=== PATIENT | female | born 1950 | race Caucasian/White ===

== ENCOUNTER 2019-01-14 06:05 | Day surgery (SDC) | payer OTHER ==
[~2019-01-14 06:05] MED LIST: MULTIPLE VITAM1 EACH PO
== END 2019-01-14 13:30 | disposition home or self-care (01) ==
LOC: CIR.AMB 06:05
DX: N95.0 Postmenopausal bleeding (principal)

== ENCOUNTER 2022-03-04 08:03 | Outpatient (CLI) | payer OTHER | END 2022-03-04 08:04 | disposition home or self-care (01) | LOC: NUCLEAR 08:03 | PROVIDERS: ATTEND Obstetrics & Gynecology Gynecologic Oncology | DX: C54.1 Malignant neoplasm of endometrium (principal) | CPT/HCPCS: 78815; A9552 ==

== ENCOUNTER 2022-03-08 08:41 | Outpatient (CLI) | payer OTHER | END 2022-03-08 08:57 | disposition home or self-care (01) | LOC: MRI 08:41 | PROVIDERS: ATTEND Obstetrics & Gynecology Gynecologic Oncology | DX: C54.1 Malignant neoplasm of endometrium (principal) | CPT/HCPCS: 72197 ==

== ENCOUNTER 2022-03-26 05:55 | Day surgery (SDC) | payer OTHER | END 2022-03-26 13:15 | disposition home or self-care (01) | LOC: CIR.AMB 05:55 | PROVIDERS: ATTEND Specialist | DX: C54.1 Malignant neoplasm of endometrium (principal); Z20.822 Contact with and (suspected) exposure to COVID-19; Z91.013 Allergy to seafood; Z87.891 Personal history of nicotine dependence ==

== ENCOUNTER 2022-07-11 13:05 | Outpatient (CLI) | payer OTHER | END 2022-07-11 13:21 | disposition home or self-care (01) | LOC: MRI 13:05 | PROVIDERS: ATTEND Internal Medicine Hematology & Oncology | DX: C55 Malignant neoplasm of uterus, part unspecified (principal) | CPT/HCPCS: 72195 ==

== ENCOUNTER 2023-01-06 16:46 | Inpatient (IN) | payer OTHER ==
[~2023-01-06] VITALS: Ht 157.5 cm; Wt 60.3 kg
--- NOTE | 2023-01-06 17:14 | NUR ---
PACIENTE ALERTA Y ORIENTADA X3, REFIERE QUE EL JUEVES RECIBIO RADIOTERAPIA Y DESDE AHI PRESENTA DOLOR ABDOMINAL, DIARREAS Y VOMITOS. REFIERE QUE HOY A TENIDO DIARREAS X2 Y VOMITOS X1. SE MONITOREAN VS Y SE UBICA. PTE DEL DR. BRENNA RUSH
--- NOTE | 2023-01-06 17:33 | NUR ---
SE ORIENTA PTE SOBRE TX MEDICO EL CUAL REFIERE ENTENDER.SE LE EXTRAEN MUESTRAS BAJO MEDIDAS ASEPTICAS,SE CANALIZA Y SE ADMINISTRAN MEDICAMENTOS CLEMENTE ORDEN MEDICA.
[2023-01-08] MEDS ORDERED: PEPCID AC20 MG PO (13:09)
[2023-01-08] MEDS ORDERED: GABAPENTIN100 MG PO (13:09)
[2023-01-08] MEDS ORDERED: AZULFIDINE 500 MG PO (13:09)
== END 2023-01-08 13:35 | disposition home or self-care (01) | DRG 641 ==
LOC: ER 16:46 → SEC-K 20:57 → MEDI 20:57
PROVIDERS: ADMIT Internal Medicine Hematology & Oncology; ATTEND Internal Medicine Hematology & Oncology
DX: E86.0 Dehydration (principal); K52.0 Gastroenteritis and colitis due to radiation; C77.2 Secondary and unspecified malignant neoplasm of intra-abdominal lymph nodes; C77.5 Secondary and unspecified malignant neoplasm of intrapelvic lymph nodes; C55 Malignant neoplasm of uterus, part unspecified; D63.0 Anemia in neoplastic disease; D72.818 Other decreased white blood cell count; D69.59 Other secondary thrombocytopenia

== ENCOUNTER 2024-01-01 14:40 | Emergency (ER) | payer OTHER ==
[~2024-01-01] VITALS: Ht 157.5 cm; Wt 61.2 kg
[~2024-01-01 14:40] MED LIST changes: +AZULFIDINE 500 MG PO; +GABAPENTIN100 MG PO; +PEPCID AC20 MG PO
[2024-01-01] MEDS ORDERED: KETOROLAC TROMETHAMINE 60 MG VIAL IM ONE (18:00)
[2024-01-01 18:08] LABS: HEMATOCRIT 35.7 % (36.0-45.00); MEAN CELL VOLUME 86.8 fL (80.00-100.00); MEAN CORPUSCULAR HEMOGLOBIN 29.2 pg (27.00-32.0); MEAN CORPUSCULAR HGB CONC 33.6 g/dl (32.0-36.0); PLATELET COUNT 186 K/uL (150-450); RED BLOOD COUNT 4.12 M/uL (4.00-6.00); RED CELL DISTRIBUTION WIDTH 13.9 % (11.5-14.5)
[2024-01-01 18:25] LABS: D DIMER 1.06 MG/L; PARTIAL THROMBOPLASTIN TIME 27.4 SECONDS (22.0-34.0)
[2024-01-01 18:29] LABS: ALBUMIN 3.7 gm/dL (3.4-5.0); BILIRUBIN TOTAL 0.26 mg/dL (0.3-1.2); CALCIUM 9.3 mg/dL (8.5-10.1); CREATININE SERUM 0.81 mg/dL (0.55-1.02); GFR 69.5; GLOBULINA 4.1 G/DL (2.4-3.5); POTASSIUM 4.22 mEq/L (3.5-5.1); TOTAL PROTEIN 7.8 gm/dL (6.4-8.2)
[2024-01-01 18:51] LABS: INR 0.94; PROTHROMBIN TIME 9.9 SECONDS (9.0-11.5)
== END 2024-01-01 18:03 | disposition home or self-care (01) ==
LOC: ER 14:41
PROVIDERS: General Practice
DX: M79.604 Pain in right leg (principal); Z91.013 Allergy to seafood
CPT/HCPCS: 36415; 96372; 99282; J1885

== ENCOUNTER 2024-01-02 09:21 | Emergency (ER) | payer OTHER ==
[~2024-01-02] VITALS: Ht 157.5 cm; Wt 71.7 kg
== END 2024-01-02 13:10 | disposition home or self-care (01) ==
LOC: ER 09:21
DX: I89.0 Lymphedema, not elsewhere classified (principal); Z91.013 Allergy to seafood; Z85.89 Personal history of malignant neoplasm of other organs and systems

== ENCOUNTER 2024-03-07 14:45 | Inpatient (IN) | payer OTHER ==
[~2024-03-07] VITALS: Ht 157.5 cm; Wt 68.0 kg
[~2024-03-07 14:45] MED LIST changes: +COLACE100 MG PO; +CYMBALTA30 MG PO; +DEXAMETHASONE4 MG PO; +ELIQUIS5 MG PO; +FAMOTIDINE20 MG PO; +FUROSEMIDE20 MG PO; +GABAPENTIN300 MG PO; +LACTULOSE10 GM/152 PO
[2024-03-07] MEDS ORDERED: OXYCODONE HCL20 M1 PO (15:34)
[2024-03-07] MEDS ORDERED: MS CONTIN15 M1 PO (15:35)
[2024-03-07] MEDS ORDERED: RESTORIL15 MG PO (15:35)
[2024-03-07] MEDS ORDERED: FLORANEX TABLE1 EACH PO (15:35)
[2024-03-07] MEDS ORDERED: HORIZANT300 MG PO (15:37)
--- NOTE | 2024-03-07 15:37 | NUR ---
PTE ALERTA Y ORIENTADA X3 QUIEN REFIERE VENIR POR EDEMA EN [place]. PTE CON CANCER DE NODULOS LINFATICOS. PTE DE DR. SHEREE RUSH
[2024-03-07] MEDS ORDERED: FUROsemide 40 MG/4 ML VIAL IV SCH (17:57)
[2024-03-07] MEDS ORDERED: MORPHINE SULFATE 2 MG/ML CARTRIDGE IV PRN (18:00)
[2024-03-07] MEDS ORDERED: OxyCODONE HCL/APAP UD (PERCOCET) PO SCH (18:00)
[2024-03-07] MEDS ORDERED: FUROsemide 40 MG/4 ML VIAL ONE (18:13)
[2024-03-07 18:45] LABS: HEMATOCRIT 29.7 % (36.0-45.00); HEMOGLOBIN 10.2 g/dL (12.0-15.00); MEAN CELL VOLUME 87.4 fL (80.00-100.00); MEAN CORPUSCULAR HEMOGLOBIN 30.1 pg (27.00-32.0); MEAN CORPUSCULAR HGB CONC 34.4 g/dl (32.0-36.0); RED CELL DISTRIBUTION WIDTH 14.2 % (11.5-14.5)
--- NOTE | 2024-03-07 18:46 | NUR ---
PTE EVALUADA POR DR. Cornell SCOTT QUIEN ORDENA [place] MEDICO. SE ORIENTA A PTE SOBRE EL MISMO, ESTA REFIERE ENTENDER. SE COLECTAN MUESTRAS DE LAB BAJO MEDIDAS ASEPTICAS Y SE ADMINISTRAN MEDICAMENTOS CLEMENTE ORDEN MEDICA. SE ORIENTA A PTE SOBRE BENEFICIOS DE CASTELLANO CATHETER DEBIDO A USO DE DIURETICOS, ESTA REHUSA EL MISMO. SE NOTIFICA A DR. Cornell SCOTT SOBRE EL MISMO.
[2024-03-07 18:52] LABS: PLATELET COUNT 126 K/uL (150-450)
[2024-03-07 18:56] LABS: ERYTHROCYTE SEDIMENTATION RATE 55 mm/hr
[2024-03-07 19:18] LABS: D DIMER 0.75 MG/L; PARTIAL THROMBOPLASTIN TIME 28.3 SECONDS (22.0-34.0)
[2024-03-07 19:22] LABS: INR < 0.93; PROTHROMBIN TIME 9.7 SECONDS (9.0-11.5)
[2024-03-07 19:25] LABS: BILIRUBIN TOTAL 0.34 mg/dL (0.3-1.2); CALCIUM 8.8 mg/dL (8.5-10.1); CREATININE SERUM 0.89 mg/dL (0.55-1.02); GFR 62.35; GLOBULINA 3.2 G/DL (2.4-3.5); POTASSIUM 3.91 mEq/L (3.5-5.1); TOTAL PROTEIN 6.2 gm/dL (6.4-8.2)
[2024-03-07] MEDS ORDERED: ONDANSETRON HCL 4 MG in 0.9 % SODIUM CHLORIDE 50 ML IV PRN (20:15)
[2024-03-07] MEDS ORDERED: ACETAMINOPHEN 500 MG GEL..CAP PO PRN (20:15)
[2024-03-07] MEDS ORDERED: ALBUMIN HUMAN 5% 0.05GM/ML (250ML) VIAL IV SCH (21:00)
[2024-03-07] MEDS ORDERED: TEMAZEPAM 15 MG CAPSULE PO SCH (21:00)
[2024-03-08] MEDS ORDERED: FAMOTIDINE/PF 20 MG in 0.9 % SODIUM CHLORIDE 8 ML IV PUSH SCH (09:00)
[2024-03-08] MEDS ORDERED: GABAPENTIN 300 MG CAPSULE PO SCH ×2 (09:00→17:00)
[2024-03-08] MEDS ORDERED: Duloxetine HCl 30 MG CAPSULE.DR PO SCH (09:00)
[2024-03-08] MEDS ORDERED: ALBUMIN HUMAN-25 0.25GM/ML (50ML) VIAL IV SCH (13:00)
[2024-03-08] MEDS ORDERED: MORPHINE SULFATE 2 MG/ML CARTRIDGE IV PRN (13:52)
[2024-03-08] MEDS ORDERED: VITAMIN B COMPLEX 1 EACH PO SCH (17:00)
[2024-03-08] MEDS ORDERED: FILGRASTIM-AAFI 300 MCG/0.5 ML SYRINGE SUBCUTANEO SCH (17:00)
[2024-03-08] MEDS ORDERED: NIFEDIPINE 30 MG TAB.SA.OSM PO SCH (19:39)
[2024-03-08] MEDS ORDERED: MORPHINE SULFATE 4 MG/ML VIAL IV STA (20:12)
[2024-03-08] MEDS ORDERED: GABAPENTIN 400 MG CAPSULE PO SCH (21:15)
[2024-03-09] MEDS ORDERED: fentaNYL 12 MCG PATCH.TD72 TD SCH ×2 (06:00→07:00)
[2024-03-09 08:41] LABS: ALBUMIN 3.2 gm/dL (3.4-5.0); BILIRUBIN TOTAL 0.38 mg/dL (0.3-1.2); CREATININE SERUM 0.88 mg/dL (0.55-1.02); GFR 63.16; MAGNESIUM 2.3 mg/dL (1.8-2.4); PHOSPHOROUS 3.1 mg/dL (2.5-4.9); POTASSIUM 3.9 mEq/L (3.5-5.1); TOTAL PROTEIN 6.2 gm/dL (6.4-8.2)
[2024-03-09] MEDS ORDERED: GABAPENTIN 400 MG CAPSULE PO SCH (09:00)
[2024-03-09] MEDS ORDERED: PANTOPRAZOLE SODIUM 40 MG TABLET.DR PO SCH (09:00)
[2024-03-09] MEDS ORDERED: FILGRASTIM-AAFI 300 MCG/0.5 ML SYRINGE SUBCUTANEO SCH (09:00)
[2024-03-09] MEDS ORDERED: IRON FUM,PS/FOLIC/BCOMP,C NO.9 1 CAP CAPSULE PO SCH (09:00)
[2024-03-09 09:18] LABS: HEMATOCRIT 27.2 % (36.0-45.00); HEMOGLOBIN 9.3 g/dL (12.0-15.00); MEAN CELL VOLUME 87.1 fL (80.00-100.00); MEAN CORPUSCULAR HEMOGLOBIN 29.7 pg (27.00-32.0); MEAN CORPUSCULAR HGB CONC 34.1 g/dl (32.0-36.0); PLATELET COUNT 146 K/uL (150-450); RED BLOOD COUNT 3.12 M/uL (4.00-6.00); RED CELL DISTRIBUTION WIDTH 14.5 % (11.5-14.5)
[2024-03-09] MEDS ORDERED: MAG HYDROX/ALUMINUM HYD/SIMETH 30 ML BLIST.PACK PO ONE (20:15)
[2024-03-09] MEDS ORDERED: DEXAMETHASONE 6 MG PO SCH (21:00)
[2024-03-09] MEDS ORDERED: ALUMINUM HYD PO SCH (21:00)
[2024-03-09] MEDS ORDERED: SIMETH PO SCH (21:00)
[2024-03-09] MEDS ORDERED: LIDOCAINE HCL MAG HYDROX PO SCH (21:00)
[2024-03-10] MEDS ORDERED: MAG HYDROX/ALUMINUM HYD/SIMETH 30 ML BLIST.PACK PO ONE (08:26)
[2024-03-10 09:16] LABS: HEMATOCRIT 24.5 % (36.0-45.00); MEAN CELL VOLUME 86.4 fL (80.00-100.00); MEAN CORPUSCULAR HEMOGLOBIN 29.9 pg (27.00-32.0); MEAN CORPUSCULAR HGB CONC 34.6 g/dl (32.0-36.0); PLATELET COUNT 166 K/uL (150-450); RED BLOOD COUNT 2.84 M/uL (4.00-6.00); RED CELL DISTRIBUTION WIDTH 14.7 % (11.5-14.5)
[2024-03-10 09:25] LABS: HEMOGLOBIN 8.5 g/dL (12.0-15.00)
[2024-03-10 15:28] LABS: URINE APPEARANCE Clear; URINE BILIRRUBIN Negative (NEGATIVE); URINE BLOOD Moderate; URINE COLOR Yellow; URINE GLUCOSE Negative (NEGATIVE); URINE LEUKOCYTE Small; URINE NITRATE Negative; URINE UROBILINOGEN 0.2 E.U./dl
[2024-03-10 15:29] LABS: URINE BACTERIA 148.6 uL (0.0-1933); URINE EPITHELIAL CELLS 4.4 uL (0.0-38.8); URINE RBC 234.8 uL (0.0-20.8); URINE WBC 31.5 uL (0.0-23.2)
[2024-03-10 15:43] LABS: URINE PROTEIN 100 (NEGATIVE)
[2024-03-11] MEDS ORDERED: DIATRIZOATE MEGLUMINE, SODIUM 30 ML BOTTLE PO ONE (06:00)
[2024-03-11] MEDS ORDERED: DIPHENHYDRAMINE HCL 50 MG/ML VIAL 1ML IV SCH (08:30)
[2024-03-11] MEDS ORDERED: EPOETIN ALFA-EPBX 10,000 UNIT/ML VIAL (Retacrit) SUBCUTANEO SCH (09:00)
[2024-03-11] MEDS ORDERED: METHYLPREDNISOLONE SOD SUCC 40 MG VIAL IV SCH (09:54)
[2024-03-11] MEDS ORDERED: METHYLPREDNISOLONE SOD SUCC 40 MG VIAL ONE (10:23)
[2024-03-11] MEDS ORDERED: MAG HYDROX/ALUMINUM HYD/SIMETH 30 ML BLIST.PACK PO ONE (14:20)
[2024-03-11 14:34] LABS: ob NEGATIVE (NEGATIVE)
[2024-03-12] MEDS ORDERED: fentaNYL 12 MCG PATCH.TD72 TD SCH (07:00)
[2024-03-12 08:25] LABS: HEMATOCRIT 25.1 % (36.0-45.00); MEAN CELL VOLUME 87.1 fL (80.00-100.00); PLATELET COUNT 261 K/uL (150-450); RED BLOOD COUNT 2.88 M/uL (4.00-6.00); RED CELL DISTRIBUTION WIDTH 15.1 % (11.5-14.5)
[2024-03-12] MEDS ORDERED: FUROsemide 40 MG/4 ML VIAL IV SCH (09:00)
[2024-03-12 09:02] LABS: ALBUMIN 2.8 gm/dL (3.4-5.0); BILIRUBIN TOTAL 0.17 mg/dL (0.3-1.2); CALCIUM 8.9 mg/dL (8.5-10.1); CREATININE SERUM 0.88 mg/dL (0.55-1.02); GFR 63.16; GLOBULINA 2.9 G/DL (2.4-3.5); POTASSIUM 4.38 mEq/L (3.5-5.1); TOTAL PROTEIN 5.7 gm/dL (6.4-8.2)
[2024-03-12 09:18] LABS: HEMOGLOBIN 8.5 g/dL (12.0-15.00); MEAN CORPUSCULAR HEMOGLOBIN 29.5 pg (27.00-32.0)
[2024-03-13] MEDS ORDERED: MORPHINE SULFATE 2 MG/ML CARTRIDGE IV PRN (00:45)
[2024-03-13] MEDS ORDERED: GABAPENTIN 400 MG CAPSULE PO SCH (09:00)
[2024-03-13] MEDS ORDERED: Duloxetine HCl 60 MG CAPSULE.DR PO SCH (09:00)
[2024-03-13] MEDS ORDERED: APIXABAN 5 MG TABLET PO SCH (21:00)
[2024-03-14 07:39] LABS: HEMATOCRIT 25.4 % (36.0-45.00); MEAN CELL VOLUME 86.3 fL (80.00-100.00); MEAN CORPUSCULAR HGB CONC 34.5 g/dl (32.0-36.0); PLATELET COUNT 294 K/uL (150-450); RED BLOOD COUNT 2.95 M/uL (4.00-6.00)
[2024-03-14 07:42] LABS: MEAN CORPUSCULAR HEMOGLOBIN 29.8 pg (27.00-32.0)
[2024-03-14 07:43] LABS: HEMOGLOBIN 8.8 g/dL (12.0-15.00)
[2024-03-14] MEDS ORDERED: TEMAZEPAM 15 MG CAPSULE PO ONE (22:45)
[2024-03-15 08:13] LABS: HEMATOCRIT 27.5 % (36.0-45.00); HEMOGLOBIN 9.3 g/dL (12.0-15.00); MEAN CELL VOLUME 86.6 fL (80.00-100.00); MEAN CORPUSCULAR HEMOGLOBIN 29.4 pg (27.00-32.0); MEAN CORPUSCULAR HGB CONC 33.9 g/dl (32.0-36.0); PLATELET COUNT 325 K/uL (150-450); RED BLOOD COUNT 3.18 M/uL (4.00-6.00); RED CELL DISTRIBUTION WIDTH 15.1 % (11.5-14.5)
[2024-03-15 08:28] LABS: ALBUMIN 3.1 gm/dL (3.4-5.0); BILIRUBIN TOTAL 0.25 mg/dL (0.3-1.2); CALCIUM 9.2 mg/dL (8.5-10.1); CREATININE SERUM 0.81 mg/dL (0.55-1.02); GFR 69.5; GLOBULINA 3.2 G/DL (2.4-3.5); MAGNESIUM 2.4 mg/dL (1.8-2.4); POTASSIUM 4.23 mEq/L (3.5-5.1); TOTAL PROTEIN 6.3 gm/dL (6.4-8.2)
[2024-03-15] MEDS ORDERED: MORPHINE SULFATE 2 MG/ML CARTRIDGE IV PRN (18:30)
[2024-03-15] MEDS ORDERED: TEMAZEPAM 15 MG CAPSULE PO SCH (21:00)
[2024-03-15] MEDS ORDERED: FUROsemide 20 MG/2 ML VIAL IV SCH (21:00)
[2024-03-15] MEDS ORDERED: LIDOCAINE 5% 1 PATCH ADH. TOP SCH (21:00)
[2024-03-17 08:16] LABS: HEMATOCRIT 30.4 % (36.0-45.00); HEMOGLOBIN 10.3 g/dL (12.0-15.00); MEAN CELL VOLUME 87.7 fL (80.00-100.00); MEAN CORPUSCULAR HEMOGLOBIN 29.7 pg (27.00-32.0); MEAN CORPUSCULAR HGB CONC 33.9 g/dl (32.0-36.0); PLATELET COUNT 309 K/uL (150-450); RED BLOOD COUNT 3.47 M/uL (4.00-6.00); RED CELL DISTRIBUTION WIDTH 15.4 % (11.5-14.5)
[2024-03-17 08:31] LABS: BILIRUBIN TOTAL 0.33 mg/dL (0.3-1.2); CALCIUM 8.9 mg/dL (8.5-10.1); CREATININE SERUM 0.87 mg/dL (0.55-1.02); GLOBULINA 3.2 G/DL (2.4-3.5); MAGNESIUM 2.4 mg/dL (1.8-2.4); PHOSPHOROUS 2.7 mg/dL (2.5-4.9); POTASSIUM 4.54 mEq/L (3.5-5.1); TOTAL PROTEIN 6.2 gm/dL (6.4-8.2)
[2024-03-17] MEDS ORDERED: FUROsemide 20 MG/2 ML VIAL IV SCH (09:00)
[2024-03-17] MEDS ORDERED: FUROsemide 20 MG TABLET PO SCH (09:00)
[2024-03-17] MEDS ORDERED: MORPHINE SULFATE 2 MG/ML CARTRIDGE IV STA (09:46)
[2024-03-17] MEDS ORDERED: MORPHINE SULFATE 2 MG/ML CARTRIDGE IV PRN (16:50)
[2024-03-17] MEDS ORDERED: 0.9 % SODIUM CHLORIDE 1,000 ML IV SCH (17:30)
[2024-03-17] MEDS ORDERED: MORPHINE SULFATE 4 MG/ML CARTRIDGE IV SCH (18:00)
[2024-03-17] MEDS ORDERED: MORPHINE SULFATE 4 MG/ML CARTRIDGE IV PRN (19:42)
[2024-03-18] MEDS ORDERED: GABAPENTIN 600 MG TABLET PO SCH (01:00)
[2024-03-18 07:30] LABS: HEMATOCRIT 28.4 % (36.0-45.00); HEMOGLOBIN 9.6 g/dL (12.0-15.00); MEAN CELL VOLUME 86.2 fL (80.00-100.00); MEAN CORPUSCULAR HEMOGLOBIN 29.1 pg (27.00-32.0); MEAN CORPUSCULAR HGB CONC 33.8 g/dl (32.0-36.0); PLATELET COUNT 290 K/uL (150-450); RED CELL DISTRIBUTION WIDTH 15.3 % (11.5-14.5)
[2024-03-18 08:00] LABS: ALBUMIN 2.6 gm/dL (3.4-5.0); BILIRUBIN TOTAL 0.6 mg/dL (0.3-1.2); CALCIUM 8.5 mg/dL (8.5-10.1); CREATININE SERUM 0.78 mg/dL (0.55-1.02); GFR 72.6; MAGNESIUM 2.4 mg/dL (1.8-2.4); POTASSIUM 4.69 mEq/L (3.5-5.1); TOTAL PROTEIN 5.6 gm/dL (6.4-8.2)
[2024-03-18] MEDS ORDERED: METHYLPREDNISOLONE SOD SUCC 40 MG VIAL IV SCH (09:30)
[2024-03-18] MEDS ORDERED: DOCUSATE SODIUM 100MG CAP PO SCH (17:00)
[2024-03-19 08:38] LABS: HEMATOCRIT 25.6 % (36.0-45.00); MEAN CELL VOLUME 87.2 fL (80.00-100.00); MEAN CORPUSCULAR HGB CONC 33.7 g/dl (32.0-36.0); PLATELET COUNT 239 K/uL (150-450); RED BLOOD COUNT 2.94 M/uL (4.00-6.00); RED CELL DISTRIBUTION WIDTH 15.5 % (11.5-14.5)
[2024-03-19 08:42] LABS: HEMOGLOBIN 8.6 g/dL (12.0-15.00); MEAN CORPUSCULAR HEMOGLOBIN 29.2 pg (27.00-32.0)
[2024-03-19 09:07] LABS: ALBUMIN 2.5 gm/dL (3.4-5.0); BILIRUBIN TOTAL 0.42 mg/dL (0.3-1.2); CALCIUM 8.3 mg/dL (8.5-10.1); CREATININE SERUM 0.7 mg/dL (0.55-1.02); GFR 82.25; GLOBULINA 3.2 G/DL (2.4-3.5); POTASSIUM 4.39 mEq/L (3.5-5.1); TOTAL PROTEIN 5.7 gm/dL (6.4-8.2)
[2024-03-20] MEDS ORDERED: MORPHINE SULFATE 4 MG/ML VIAL IV PRN (01:30)
[2024-03-20] MEDS ORDERED: MORPHINE SULFATE 2 MG/ML CARTRIDGE IV PRN (10:45)
[2024-03-21] MEDS ORDERED: ONDANSETRON HCL 4 MG in DEXTROSE 5 % IN WATER 50 ML IV SCH (01:00)
[2024-03-21 08:12] LABS: HEMATOCRIT 27.4 % (36.0-45.00); HEMOGLOBIN 9.3 g/dL (12.0-15.00); MEAN CELL VOLUME 85.5 fL (80.00-100.00); MEAN CORPUSCULAR HEMOGLOBIN 28.9 pg (27.00-32.0); MEAN CORPUSCULAR HGB CONC 33.8 g/dl (32.0-36.0); PLATELET COUNT 208 K/uL (150-450); RED CELL DISTRIBUTION WIDTH 15.5 % (11.5-14.5)
[2024-03-21 08:55] LABS: ALBUMIN 2.3 gm/dL (3.4-5.0); BILIRUBIN TOTAL 1.03 mg/dL (0.3-1.2); CALCIUM 8.4 mg/dL (8.5-10.1); CREATININE SERUM 0.83 mg/dL (0.55-1.02); GFR 67.57; GLOBULINA 3.3 G/DL (2.4-3.5); PHOSPHOROUS 2.4 mg/dL (2.5-4.9); POTASSIUM 4.52 mEq/L (3.5-5.1); TOTAL PROTEIN 5.6 gm/dL (6.4-8.2)
[2024-03-21] MEDS ORDERED: NAPH,MB-DB/K PH,MBDB 1 PKT PACKET PO SCH (12:14)
[2024-03-21] MEDS ORDERED: CEFEPIME HCL 2,000 MG in 0.9 % SODIUM CHLORIDE 100 ML IV SCH (12:15)
[2024-03-21] MEDS ORDERED: VANCOMYCIN HCL 1,000 MG VIAL IV STA (12:15)
[2024-03-21] MEDS ORDERED: 0.9 % SODIUM CHLORIDE 1,000 ML IV SCH (12:30)
[2024-03-21 15:10] LABS: URINE APPEARANCE Turbid; URINE BILIRRUBIN Negative (NEGATIVE); URINE BLOOD Large; URINE COLOR Yellow; URINE LEUKOCYTE Large; URINE NITRATE Positive
[2024-03-21 15:13] LABS: URINE EPITHELIAL CELLS 4.7 uL (0.0-38.8); URINE RBC 521.4 uL (0.0-20.8)
[2024-03-21 15:16] LABS: URINE GLUCOSE >=1000 MG/DL (NEGATIVE)
[2024-03-21 15:17] LABS: URINE PROTEIN 100 (NEGATIVE)
[2024-03-21] MEDS ORDERED: DEXTROSE 50 % IN WATER 0.5 G/ML VIAL IV PRN (20:15)
[2024-03-21] MEDS ORDERED: INSULIN LISPRO 1,000 UNIT/10 ML UNITS SUBCUTANEO PRN (20:15)
[2024-03-21] MEDS ORDERED: VANCOMYCIN HCL 1,000 MG VIAL IV SCH (21:00)
[2024-03-22 08:03] LABS: MEAN CELL VOLUME 86.6 fL (80.00-100.00); PLATELET COUNT 190 K/uL (150-450); RED BLOOD COUNT 2.72 M/uL (4.00-6.00); RED CELL DISTRIBUTION WIDTH 15.6 % (11.5-14.5)
[2024-03-22 08:22] LABS: HEMATOCRIT 23.6 % (36.0-45.00); MEAN CORPUSCULAR HEMOGLOBIN 29.4 pg (27.00-32.0)
[2024-03-22 09:01] LABS: BILIRUBIN TOTAL 0.82 mg/dL (0.3-1.2); CREATININE SERUM 0.84 mg/dL (0.55-1.02); GFR 66.65; POTASSIUM 4.19 mEq/L (3.5-5.1)
[2024-03-22] MEDS ORDERED: 0.9 % SODIUM CHLORIDE 1,000 ML IV STA (19:40)
[2024-03-22] MEDS ORDERED: FUROsemide 20 MG/2 ML VIAL IV PRN (20:15)
[2024-03-22] MEDS ORDERED: CEFEPIME HCL 2,000 MG in 0.9 % SODIUM CHLORIDE 100 ML IV SCH (21:00)
[2024-03-23] MEDS ORDERED: ACETAMINOPHEN 500 MG GEL..CAP PO PRN (04:00)
[2024-03-23 07:26] LABS: HEMATOCRIT 23.6 % (36.0-45.00); MEAN CELL VOLUME 85.5 fL (80.00-100.00); MEAN CORPUSCULAR HEMOGLOBIN 29.2 pg (27.00-32.0); MEAN CORPUSCULAR HGB CONC 34.2 g/dl (32.0-36.0); PLATELET COUNT 198 K/uL (150-450); RED BLOOD COUNT 2.77 M/uL (4.00-6.00)
[2024-03-23 07:27] LABS: HEMOGLOBIN 8.1 g/dL (12.0-15.00)
[2024-03-23 08:07] LABS: ALBUMIN 1.8 gm/dL (3.4-5.0); BILIRUBIN TOTAL 0.85 mg/dL (0.3-1.2); CALCIUM 7.6 mg/dL (8.5-10.1); CREATININE SERUM 0.82 mg/dL (0.55-1.02); GFR 68.53; MAGNESIUM 1.9 mg/dL (1.8-2.4); PHOSPHOROUS 2.1 mg/dL (2.5-4.9); POTASSIUM 3.98 mEq/L (3.5-5.1); TOTAL PROTEIN 4.8 gm/dL (6.4-8.2)
[2024-03-23 11:07] LABS: HEMATOCRIT 26.2 % (36.0-45.00); MEAN CELL VOLUME 86.5 fL (80.00-100.00); MEAN CORPUSCULAR HEMOGLOBIN 29.7 pg (27.00-32.0); MEAN CORPUSCULAR HGB CONC 34.3 g/dl (32.0-36.0); PLATELET COUNT 210 K/uL (150-450); RED BLOOD COUNT 3.03 M/uL (4.00-6.00); RED CELL DISTRIBUTION WIDTH 15.7 % (11.5-14.5)
[2024-03-23] MEDS ORDERED: AMINO ACIDS 1 EACH TABLET PO SCH (13:00)
[2024-03-23] MEDS ORDERED: OxyCODONE HCL 5 MG TABLET (ROXICODONE) PO PRN (19:30)
[2024-03-23 22:01] LABS: INR 1.04; PARTIAL THROMBOPLASTIN TIME 27.3 SECONDS (22.0-34.0); PROTHROMBIN TIME 10.9 SECONDS (9.0-11.5)
[2024-03-24] MEDS ORDERED: CEFAZOLIN SODIUM 1,000 MG VIAL IV SCH (01:00)
[2024-03-24] MEDS ORDERED: fentaNYL 12 MCG PATCH.TD72 TD SCH (07:00)
[2024-03-24] MEDS ORDERED: INSULIN NPH HUM/REG INSULIN HM 1,000 UNIT/10 ML UNITS SUBCUTANEO SCH (08:00)
[2024-03-24 09:59] LABS: HEMATOCRIT 29.1 % (36.0-45.00); HEMOGLOBIN 10.1 g/dL (12.0-15.00); MEAN CELL VOLUME 85.3 fL (80.00-100.00); MEAN CORPUSCULAR HEMOGLOBIN 29.6 pg (27.00-32.0); MEAN CORPUSCULAR HGB CONC 34.7 g/dl (32.0-36.0); PLATELET COUNT 252 K/uL (150-450); RED BLOOD COUNT 3.41 M/uL (4.00-6.00); RED CELL DISTRIBUTION WIDTH 15.5 % (11.5-14.5)
[2024-03-24 10:32] LABS: ALBUMIN 2.1 gm/dL (3.4-5.0); BILIRUBIN TOTAL 0.89 mg/dL (0.3-1.2); CREATININE SERUM 0.81 mg/dL (0.55-1.02); GFR 69.5; GLOBULINA 3.5 G/DL (2.4-3.5); PHOSPHOROUS 2.2 mg/dL (2.5-4.9); POTASSIUM 3.79 mEq/L (3.5-5.1); TOTAL PROTEIN 5.6 gm/dL (6.4-8.2)
[2024-03-24] MEDS ORDERED: POTASSIUM PHOS,M-BASIC-D-BASIC 3 MM/ML VIAL IV ONE ×2 (11:45→12:15)
[2024-03-24] MEDS ORDERED: LIDOCAINE HCL 1%/EPINEPHRINE 20ML VIAL IJ ONE (12:15)
[2024-03-24] MEDS ORDERED: LIDOCAINE HCL 1% 20ML VIAL IJ ONE (12:15)
[2024-03-24] MEDS ORDERED: MORPHINE SULFATE 4 MG/ML CARTRIDGE IV STA (19:41)
[2024-03-25] MEDS ORDERED: OxyCODONE HCL 5 MG TABLET (ROXICODONE) PO PRN ×2 (01:15→07:15)
[2024-03-25 02:30] LABS: HEMATOCRIT 31.4 % (36.0-45.00); HEMOGLOBIN 10.7 g/dL (12.0-15.00); MEAN CELL VOLUME 86.5 fL (80.00-100.00); MEAN CORPUSCULAR HEMOGLOBIN 29.4 pg (27.00-32.0); MEAN CORPUSCULAR HGB CONC 33.9 g/dl (32.0-36.0); PLATELET COUNT 274 K/uL (150-450); RED BLOOD COUNT 3.63 M/uL (4.00-6.00); RED CELL DISTRIBUTION WIDTH 15.4 % (11.5-14.5)
[2024-03-25] MEDS ORDERED: KETOROLAC TROMETHAMINE 30 MG VIAL IV NR (19:15)
[2024-03-26] MEDS ORDERED: fentaNYL 25 MCG PATCH.TD72 TD SCH (06:30)
[2024-03-26] MEDS ORDERED: ONDANSETRON HCL 2 MG/ML VIAL IV PRN (07:00)
[2024-03-26] MEDS ORDERED: NALOXONE HCL 0.4 MG/ML AMPUL IV PRN (07:00)
[2024-03-26] MEDS ORDERED: DIPHENHYDRAMINE HCL 50 MG/ML VIAL 1ML IV PRN (07:00)
[2024-03-26] MEDS ORDERED: SILVER SULFADIAZINE 50 GM,ZINC OXIDE 30 GM,NYSTATIN 30 GM TOP SCH (09:00)
[2024-03-26] MEDS ORDERED: OxyCODONE HCL 5 MG TABLET (ROXICODONE) PO PRN (12:50)
[2024-03-27 08:50] LABS: HEMATOCRIT 27.6 % (36.0-45.00); HEMOGLOBIN 9.5 g/dL (12.0-15.00); MEAN CELL VOLUME 85.7 fL (80.00-100.00); MEAN CORPUSCULAR HEMOGLOBIN 29.5 pg (27.00-32.0); MEAN CORPUSCULAR HGB CONC 34.4 g/dl (32.0-36.0); PLATELET COUNT 267 K/uL (150-450); RED BLOOD COUNT 3.22 M/uL (4.00-6.00); RED CELL DISTRIBUTION WIDTH 16.1 % (11.5-14.5)
[2024-03-27 09:50] LABS: ALBUMIN 1.9 gm/dL (3.4-5.0); BILIRUBIN TOTAL 0.34 mg/dL (0.3-1.2); CALCIUM 7.9 mg/dL (8.5-10.1); CREATININE SERUM 0.67 mg/dL (0.55-1.02); GFR 86.52; GLOBULINA 3.4 G/DL (2.4-3.5); MAGNESIUM 1.9 mg/dL (1.8-2.4); PHOSPHOROUS 2.5 mg/dL (2.5-4.9); POTASSIUM 3.89 mEq/L (3.5-5.1); TOTAL PROTEIN 5.3 gm/dL (6.4-8.2)
[2024-03-27] MEDS ORDERED: SENNA/DOCUSATE SODIUM 1 TAB TABLET PO SCH (21:00)
[2024-03-28] MEDS ORDERED: OxyCODONE HCL 5 MG TABLET (ROXICODONE) PO PRN (13:30)
[2024-03-28] MEDS ORDERED: fentaNYL 25 MCG PATCH.TD72 TD SCH (15:45)
[2024-03-28] MEDS ORDERED: GABAPENTIN 800 MG TABLET PO SCH (17:00)
[2024-03-28] MEDS ORDERED: KETOROLAC TROMETHAMINE 30 MG VIAL IV ONE (18:30)
[2024-03-29 07:13] LABS: HEMATOCRIT 28.8 % (36.0-45.00); HEMOGLOBIN 9.9 g/dL (12.0-15.00); MEAN CELL VOLUME 85.9 fL (80.00-100.00); MEAN CORPUSCULAR HEMOGLOBIN 29.4 pg (27.00-32.0); MEAN CORPUSCULAR HGB CONC 34.3 g/dl (32.0-36.0); PLATELET COUNT 294 K/uL (150-450); RED BLOOD COUNT 3.35 M/uL (4.00-6.00); RED CELL DISTRIBUTION WIDTH 15.7 % (11.5-14.5)
[2024-03-29 07:33] LABS: BILIRUBIN TOTAL 0.29 mg/dL (0.3-1.2); CALCIUM 8.3 mg/dL (8.5-10.1); CREATININE SERUM 0.58 mg/dL (0.55-1.02); GFR 102.19; GLOBULINA 3.6 G/DL (2.4-3.5); MAGNESIUM 1.9 mg/dL (1.8-2.4); POTASSIUM 3.95 mEq/L (3.5-5.1); TOTAL PROTEIN 5.6 gm/dL (6.4-8.2)
[2024-03-30] MEDS ORDERED: LOSARTAN POTASSIUM 25 MG TABLET PO SCH (09:00)
[2024-03-30] MEDS ORDERED: KETOROLAC TROMETHAMINE 30 MG VIAL IV SCH (22:40)
[2024-03-31] MEDS ORDERED: fentaNYL 50 MCG PATCH.TD72 TD SCH (07:15)
[2024-03-31 08:13] LABS: HEMOGLOBIN 9.1 g/dL (12.0-15.00); MEAN CELL VOLUME 85.8 fL (80.00-100.00); MEAN CORPUSCULAR HGB CONC 33.8 g/dl (32.0-36.0); PLATELET COUNT 304 K/uL (150-450); RED BLOOD COUNT 3.15 M/uL (4.00-6.00)
[2024-03-31 08:53] LABS: ALBUMIN 1.9 gm/dL (3.4-5.0); BILIRUBIN TOTAL 0.23 mg/dL (0.3-1.2); CALCIUM 8.4 mg/dL (8.5-10.1); CREATININE SERUM 0.62 mg/dL (0.55-1.02); GFR 94.62; GLOBULINA 3.6 G/DL (2.4-3.5); MAGNESIUM 1.8 mg/dL (1.8-2.4); PHOSPHOROUS 3.2 mg/dL (2.5-4.9); POTASSIUM 4.13 mEq/L (3.5-5.1); TOTAL PROTEIN 5.5 gm/dL (6.4-8.2)
[2024-03-31] MEDS ORDERED: Duloxetine HCl 30 MG CAPSULE.DR PO SCH (10:47)
[2024-03-31] MEDS ORDERED: ONDANSETRON HCL 2 MG/ML VIAL IV PRN (12:30)
[2024-03-31] MEDS ORDERED: MORPHINE SULFATE 4 MG/ML VIAL IV STA (17:04)
[2024-03-31] MEDS ORDERED: MORPHINE SULFATE 4 MG/ML CARTRIDGE IV ONE (17:15)
[2024-04-01] MEDS ORDERED: SILVER SULFADIAZINE 50 GM JAR TOP SCH (19:07)
[2024-04-02 07:00] LABS: HEMATOCRIT 26.9 % (36.0-45.00); HEMOGLOBIN 9.2 g/dL (12.0-15.00); MEAN CELL VOLUME 85.8 fL (80.00-100.00); MEAN CORPUSCULAR HEMOGLOBIN 29.2 pg (27.00-32.0); PLATELET COUNT 340 K/uL (150-450); RED BLOOD COUNT 3.14 M/uL (4.00-6.00); RED CELL DISTRIBUTION WIDTH 15.3 % (11.5-14.5)
[2024-04-02 07:37] LABS: ALBUMIN 2.1 gm/dL (3.4-5.0); BILIRUBIN TOTAL 0.23 mg/dL (0.3-1.2); CALCIUM 8.6 mg/dL (8.5-10.1); CREATININE SERUM 0.53 mg/dL (0.55-1.02); GFR 113.39; GLOBULINA 3.6 G/DL (2.4-3.5); MAGNESIUM 1.8 mg/dL (1.8-2.4); PHOSPHOROUS 3.5 mg/dL (2.5-4.9); POTASSIUM 4.62 mEq/L (3.5-5.1); TOTAL PROTEIN 5.7 gm/dL (6.4-8.2)
[2024-04-02] MEDS ORDERED: KETOROLAC TROMETHAMINE 30 MG VIAL IV STA (15:54)
[2024-04-03] MEDS ORDERED: MORPHINE SULFATE 4 MG/ML VIAL IV PRN (00:30)
[2024-04-03] MEDS ORDERED: MORPHINE SULFATE 2 MG/ML CARTRIDGE IV PRN ×2 (12:45→20:45)
[2024-04-03] MEDS ORDERED: MORPHINE SULFATE 4 MG/ML CARTRIDGE IV ONE (17:30)
[2024-04-04 09:17] LABS: ALBUMIN 2.1 gm/dL (3.4-5.0); BILIRUBIN TOTAL 0.2 mg/dL (0.3-1.2); CALCIUM 8.4 mg/dL (8.5-10.1); CREATININE SERUM 0.57 mg/dL (0.55-1.02); GFR 104.26; GLOBULINA 3.5 G/DL (2.4-3.5); MAGNESIUM 1.8 mg/dL (1.8-2.4); PHOSPHOROUS 3.1 mg/dL (2.5-4.9); POTASSIUM 4.64 mEq/L (3.5-5.1); TOTAL PROTEIN 5.6 gm/dL (6.4-8.2)
[2024-04-04 10:09] LABS: HEMATOCRIT 26.3 % (36.0-45.00); MEAN CELL VOLUME 87.7 fL (80.00-100.00); MEAN CORPUSCULAR HGB CONC 33.3 g/dl (32.0-36.0); PLATELET COUNT 338 K/uL (150-450); RED CELL DISTRIBUTION WIDTH 15.8 % (11.5-14.5)
[2024-04-04 10:11] LABS: HEMOGLOBIN 8.8 g/dL (12.0-15.00); MEAN CORPUSCULAR HEMOGLOBIN 29.3 pg (27.00-32.0)
[2024-04-04 11:25] LABS: PH,URINE 6.5 (5.0-8.0); URINE APPEARANCE Cloudy; URINE BILIRRUBIN Negative (NEGATIVE); URINE BLOOD Large; URINE COLOR Orange; URINE GLUCOSE Negative (NEGATIVE); URINE LEUKOCYTE Moderate; URINE NITRATE Negative; URINE UROBILINOGEN 0.2 E.U./dl
[2024-04-04 11:30] LABS: URINE BACTERIA 214.1 uL (0.0-1933); URINE EPITHELIAL CELLS 17.7 uL (0.0-38.8); URINE RBC 8907.7 uL (0.0-20.8); URINE WBC 169.5 uL (0.0-23.2)
[2024-04-04 14:06] LABS: URINE PROTEIN 100 (NEGATIVE)
[2024-04-04] MEDS ORDERED: SOD FERRIC GLUC COMPLX/SUCROSE 125 MG in 0.9 % SODIUM CHLORIDE 100 ML IV SCH (16:00)
[2024-04-05 09:47] LABS: INR 1.02; PROTHROMBIN TIME 10.7 SECONDS (9.0-11.5)
[2024-04-05] MEDS ORDERED: fentaNYL 50 MCG PATCH.TD72 TD STA (14:56)
[2024-04-05] MEDS ORDERED: MORPHINE SULFATE 4 MG/ML VIAL IV STA (22:37)
[2024-04-06] MEDS ORDERED: MORPHINE SULFATE 2 MG/ML CARTRIDGE IV PRN (02:00)
[2024-04-06] MEDS ORDERED: GABAPENTIN 800 MG TABLET PO SCH (06:00)
[2024-04-06 08:59] LABS: HEMATOCRIT 26.6 % (36.0-45.00); MEAN CELL VOLUME 87.7 fL (80.00-100.00); MEAN CORPUSCULAR HEMOGLOBIN 29.3 pg (27.00-32.0); MEAN CORPUSCULAR HGB CONC 33.4 g/dl (32.0-36.0); PLATELET COUNT 312 K/uL (150-450); RED BLOOD COUNT 3.03 M/uL (4.00-6.00); RED CELL DISTRIBUTION WIDTH 15.7 % (11.5-14.5)
[2024-04-06 09:00] LABS: HEMOGLOBIN 8.9 g/dL (12.0-15.00)
[2024-04-06 09:37] LABS: BILIRUBIN TOTAL 0.19 mg/dL (0.3-1.2); CALCIUM 8.3 mg/dL (8.5-10.1); CREATININE SERUM 0.49 mg/dL (0.55-1.02); GFR 124.14; GLOBULINA 3.4 G/DL (2.4-3.5); MAGNESIUM 1.8 mg/dL (1.8-2.4); PHOSPHOROUS 3.5 mg/dL (2.5-4.9); POTASSIUM 4.35 mEq/L (3.5-5.1); TOTAL PROTEIN 5.4 gm/dL (6.4-8.2)
[2024-04-08 09:11] LABS: HEMATOCRIT 27.4 % (36.0-45.00); HEMOGLOBIN 9.4 g/dL (12.0-15.00); MEAN CELL VOLUME 86.7 fL (80.00-100.00); MEAN CORPUSCULAR HEMOGLOBIN 29.6 pg (27.00-32.0); MEAN CORPUSCULAR HGB CONC 34.1 g/dl (32.0-36.0); PLATELET COUNT 293 K/uL (150-450); RED BLOOD COUNT 3.16 M/uL (4.00-6.00)
[2024-04-08 09:50] LABS: ALBUMIN 2.2 gm/dL (3.4-5.0); BILIRUBIN TOTAL 0.26 mg/dL (0.3-1.2); CALCIUM 8.7 mg/dL (8.5-10.1); CREATININE SERUM 0.51 mg/dL (0.55-1.02); GFR 118.54; GLOBULINA 3.8 G/DL (2.4-3.5); MAGNESIUM 1.9 mg/dL (1.8-2.4); PHOSPHOROUS 3.9 mg/dL (2.5-4.9); POTASSIUM 4.42 mEq/L (3.5-5.1)
[2024-04-08] MEDS ORDERED: ENALAPRILAT DIHYDRATE 1.25 MG/ML VIAL IV PRN (18:15)
[2024-04-08] MEDS ORDERED: ENALAPRILAT DIHYDRATE 1.25 MG/ML VIAL IV STA (18:18)
[2024-04-09] MEDS ORDERED: DEXAMETHASONE SODIUM PHOSPHATE 4 MG/ML VIAL IJ ONE (17:00)
[2024-04-09] MEDS ORDERED: IOHEXOL 240 mgI/ML 100ML BOTT IV ONE (17:00)
[2024-04-10 10:16] LABS: ALBUMIN 2.2 gm/dL (3.4-5.0); BILIRUBIN TOTAL 0.21 mg/dL (0.3-1.2); CALCIUM 8.8 mg/dL (8.5-10.1); CREATININE SERUM 0.45 mg/dL (0.55-1.02); GFR 136.96; GLOBULINA 3.5 G/DL (2.4-3.5); MAGNESIUM 2.1 mg/dL (1.8-2.4); PHOSPHOROUS 3.8 mg/dL (2.5-4.9); POTASSIUM 4.56 mEq/L (3.5-5.1); TOTAL PROTEIN 5.7 gm/dL (6.4-8.2)
[2024-04-10 11:16] LABS: HEMATOCRIT 26.6 % (36.0-45.00); HEMOGLOBIN 9.2 g/dL (12.0-15.00); MEAN CELL VOLUME 89.7 fL (80.00-100.00); MEAN CORPUSCULAR HGB CONC 34.5 g/dl (32.0-36.0); PLATELET COUNT 220 K/uL (150-450); RED BLOOD COUNT 2.96 M/uL (4.00-6.00); RED CELL DISTRIBUTION WIDTH 15.9 % (11.5-14.5)
[2024-04-12] MEDS ORDERED: MORPHINE SULFATE 2 MG/ML CARTRIDGE IV PRN (06:15)
[2024-04-12 06:46] LABS: HEMATOCRIT 26.4 % (36.0-45.00); MEAN CELL VOLUME 86.3 fL (80.00-100.00); MEAN CORPUSCULAR HGB CONC 33.8 g/dl (32.0-36.0); PLATELET COUNT 195 K/uL (150-450); RED BLOOD COUNT 3.06 M/uL (4.00-6.00); RED CELL DISTRIBUTION WIDTH 16.3 % (11.5-14.5)
[2024-04-12 07:02] LABS: CALCIUM 8.6 mg/dL (8.5-10.1); CREATININE SERUM 0.52 mg/dL (0.55-1.02); GFR 115.91; PHOSPHOROUS 3.7 mg/dL (2.5-4.9); POTASSIUM 4.42 mEq/L (3.5-5.1)
[2024-04-12 07:06] LABS: HEMOGLOBIN 8.9 g/dL (12.0-15.00)
[2024-04-12 07:16] LABS: INR 0.99; PARTIAL THROMBOPLASTIN TIME 27.4 SECONDS (22.0-34.0); PROTHROMBIN TIME 10.4 SECONDS (9.0-11.5)
[2024-04-12] MEDS ORDERED: 0.9 % SODIUM CHLORIDE 500 ML IV STA (16:59)
[2024-04-13] MEDS ORDERED: OxyCODONE HCL ER 10MG TAB (OxyCONTIN) PO PRN (20:00)
[2024-04-13] MEDS ORDERED: HEPARIN SODIUM,PORCINE 500 UNITS/5 ML VIAL IV ONE (22:00)
[2024-04-13] MEDS ORDERED: BUPIVACAINE HCL 30 ML VIAL IJ ONE (22:00)
[2024-04-14 07:56] LABS: HEMATOCRIT 27.2 % (36.0-45.00); HEMOGLOBIN 9.2 g/dL (12.0-15.00); MEAN CELL VOLUME 87.8 fL (80.00-100.00); MEAN CORPUSCULAR HEMOGLOBIN 29.6 pg (27.00-32.0); MEAN CORPUSCULAR HGB CONC 33.7 g/dl (32.0-36.0); PLATELET COUNT 155 K/uL (150-450); RED CELL DISTRIBUTION WIDTH 16.4 % (11.5-14.5)
[2024-04-14 08:36] LABS: ALBUMIN 2.4 gm/dL (3.4-5.0); BILIRUBIN TOTAL 0.3 mg/dL (0.3-1.2); CALCIUM 8.7 mg/dL (8.5-10.1); CREATININE SERUM 0.51 mg/dL (0.55-1.02); GFR 118.54; GLOBULINA 3.2 G/DL (2.4-3.5); POTASSIUM 4.09 mEq/L (3.5-5.1); TOTAL PROTEIN 5.6 gm/dL (6.4-8.2)
[2024-04-14] MEDS ORDERED: INTEGRA PLUS C1 EACH PO (11:33)
[2024-04-14] MEDS ORDERED: LOSARTAN POTASS25 MG PO (11:33)
[2024-04-14] MEDS ORDERED: ELIQUIS5 MG PO (11:33)
[2024-04-14] MEDS ORDERED: CYMBALTA30 MG PO (11:35)
[2024-04-14] MEDS ORDERED: NIFEDIPINE ER30 M1 PO (11:35)
[2024-04-14] MEDS ORDERED: GABAPENTIN800 MG PO (11:35)
[2024-04-14] MEDS ORDERED: OXYCONTIN10 M1 PO (11:36)
[2024-04-14] MEDS ORDERED: PANTOPRAZOLE SO20 MG PO (11:37)
[2024-04-14] MEDS ORDERED: LIDODERM1 EACH TOP (11:39)
[2024-04-14] MEDS ORDERED: FENTANYL1 EAC4 TD (11:41)
[2024-04-15] MEDS ORDERED: APIXABAN 5 MG TABLET PO SCH (09:00)
== END 2024-04-14 15:42 | disposition home or self-care (01) | DRG 579 ==
LOC: ER 14:46 → MEDJ 20:35
PROVIDERS: General Practice; Internal Medicine; Internal Medicine Hematology & Oncology; Internal Medicine Nephrology; Radiology Vascular & Interventional Radiology; ADMIT Internal Medicine; ATTEND Internal Medicine
PROC: 8E0ZXY6 Isolation (ICD-10-PCS; 2024-03-07)
PROC: BW21YZZ Computerized Tomography (CT Scan) of Abdomen and Pelvis using Other Contrast (ICD-10-PCS; 2024-03-11)
PROC: 4A12X4Z Monitoring of Cardiac Electrical Activity, External Approach (ICD-10-PCS; 2024-03-13)
PROC: BR39YZZ Magnetic Resonance Imaging (MRI) of Lumbar Spine using Other Contrast (ICD-10-PCS; 2024-03-18)
PROC: BW3GYZZ Magnetic Resonance Imaging (MRI) of Pelvic Region using Other Contrast (ICD-10-PCS; 2024-03-18)
PROC: BW3GZZZ Magnetic Resonance Imaging (MRI) of Pelvic Region (ICD-10-PCS; 2024-03-18)
PROC: 30233N1 Transfusion of Nonautologous Red Blood Cells into Peripheral Vein, Percutaneous Approach (ICD-10-PCS; 2024-03-22)
PROC: 0JPT0WZ Removal of Totally Implantable Vascular Access Device from Trunk Subcutaneous Tissue and Fascia, Open Approach (ICD-10-PCS; 2024-03-24)
PROC: B246ZZZ Ultrasonography of Right and Left Heart (ICD-10-PCS; 2024-03-26)
PROC: BR39ZZZ Magnetic Resonance Imaging (MRI) of Lumbar Spine (ICD-10-PCS; 2024-03-31)
PROC: BR39YZZ Magnetic Resonance Imaging (MRI) of Lumbar Spine using Other Contrast (ICD-10-PCS; 2024-03-31)
PROC: B24BZZ4 Ultrasonography of Heart with Aorta, Transesophageal (ICD-10-PCS; 2024-04-05)
PROC: 3E0S33Z Introduction of Anti-inflammatory into Epidural Space, Percutaneous Approach (ICD-10-PCS; 2024-04-10)
PROC: 05HM33Z Insertion of Infusion Device into Right Internal Jugular Vein, Percutaneous Approach (ICD-10-PCS; 2024-04-13)
PROC: B543ZZA Ultrasonography of Right Jugular Veins, Guidance (ICD-10-PCS; 2024-04-13)
PROC: 0JH63WZ Insertion of Totally Implantable Vascular Access Device into Chest Subcutaneous Tissue and Fascia, Percutaneous Approach (ICD-10-PCS; principal; 2024-04-13 22:00)
DX: I89.0 Lymphedema, not elsewhere classified (principal); A41.01 Sepsis due to Methicillin susceptible Staphylococcus aureus; T80.211A Bloodstream infection due to central venous catheter, initial encounter; D61.810 Antineoplastic chemotherapy induced pancytopenia; C78.6 Secondary malignant neoplasm of retroperitoneum and peritoneum; C79.89 Secondary malignant neoplasm of other specified sites; C77.2 Secondary and unspecified malignant neoplasm of intra-abdominal lymph nodes; C77.5 Secondary and unspecified malignant neoplasm of intrapelvic lymph nodes; E87.1 Hypo-osmolality and hyponatremia; R44.2 Other hallucinations; B37.49 Other urogenital candidiasis; T82.868A Thrombosis due to vascular prosthetic devices, implants and grafts, initial encounter; C54.1 Malignant neoplasm of endometrium; G89.3 Neoplasm related pain (acute) (chronic); M79.605 Pain in left leg; M79.604 Pain in right leg; M25.552 Pain in left hip; M25.551 Pain in right hip; M79.2 Neuralgia and neuritis, unspecified; D70.8 Other neutropenia; M47.897 Other spondylosis, lumbosacral region; D69.6 Thrombocytopenia, unspecified; D50.0 Iron deficiency anemia secondary to blood loss (chronic); D63.8 Anemia in other chronic diseases classified elsewhere; E11.65 Type 2 diabetes mellitus with hyperglycemia; R05.9 Cough, unspecified; D64.89 Other specified anemias; F43.23 Adjustment disorder with mixed anxiety and depressed mood; Z92.21 Personal history of antineoplastic chemotherapy; Z74.01 Bed confinement status; Z92.3 Personal history of irradiation; R60.1 Generalized edema
CPT/HCPCS: 72149; 72198

== ENCOUNTER 2024-04-30 20:35 | Inpatient (IN) | payer OTHER ==
[~2024-04-30] VITALS: Ht 157.5 cm; Wt 53.1 kg
[~2024-04-30 20:35] MED LIST changes: +FENTANYL1 EAC4 TD; +FLORANEX TABLE1 EACH PO; +GABAPENTIN800 MG PO; +HORIZANT300 MG PO; +INTEGRA PLUS C1 EACH PO; +LIDODERM1 EACH TOP; +LOSARTAN POTASS25 MG PO; +MS CONTIN15 M1 PO; +NIFEDIPINE ER30 M1 PO; +OXYCODONE HCL20 M1 PO; +OXYCONTIN10 M1 PO; +PANTOPRAZOLE SO20 MG PO; +RESTORIL15 MG PO
[2024-04-30] MEDS ORDERED: 0.9 % SODIUM CHLORIDE 1,000 ML IV SCH ×2 (20:45→23:30)
[2024-04-30 21:51] LABS: MEAN CELL VOLUME 84.7 fL (80.00-100.00); MEAN CORPUSCULAR HGB CONC 34.2 g/dl (32.0-36.0); RED BLOOD COUNT 2.48 M/uL (4.00-6.00); RED CELL DISTRIBUTION WIDTH 16.3 % (11.5-14.5)
[2024-04-30 21:56] LABS: HEMOGLOBIN 7.2 g/dL (12.0-15.00); PLATELET COUNT 67 K/uL (150-450)
[2024-04-30 22:17] LABS: ALBUMIN 2.3 gm/dL (3.4-5.0); BILIRUBIN TOTAL 1.01 mg/dL (0.3-1.2); BILIRUBIN,CONJUGATED 0.69 mg/dL (0.0-0.2); BILIRUBIN,UNCONJUGATED 0.32 mg/dL (0.0-0.6); CALCIUM 7.8 mg/dL (8.5-10.1); CREATININE SERUM 0.96 mg/dL (0.55-1.02); GFR 57.13; GLOBULINA 3.6 G/DL (2.4-3.5); POTASSIUM 3.6 mEq/L (3.5-5.1); TOTAL PROTEIN 5.9 gm/dL (6.4-8.2)
[2024-04-30] MEDS ORDERED: FUROsemide 20 MG/2 ML VIAL IV SCH ×2 (22:30→23:30)
[2024-04-30 23:24] LABS: URINE APPEARANCE Cloudy; URINE BILIRRUBIN Negative (NEGATIVE); URINE BLOOD Large; URINE COLOR Yellow; URINE GLUCOSE Negative (NEGATIVE); URINE KETONE Negative (NEGATIVE); URINE LEUKOCYTE Trace; URINE NITRATE Positive
[2024-04-30 23:28] LABS: URINE BACTERIA 7903.8 uL (0.0-1933); URINE CAST 7.32 uL (0.0-1.40); URINE EPITHELIAL CELLS 65.5 uL (0.0-38.8); URINE WBC 71.5 uL (0.0-23.2)
[2024-04-30] MEDS ORDERED: DIPHENHYDRAMINE HCL 50 MG/ML VIAL 1ML IV PRN (23:30)
[2024-04-30] MEDS ORDERED: METHYLPREDNISOLONE SOD SUCC 40 MG VIAL IV PRN (23:30)
[2024-04-30] MEDS ORDERED: FILGRASTIM-AAFI 300 MCG/0.5 ML SYRINGE SUBCUTANEO SCH (23:34)
[2024-04-30] MEDS ORDERED: GABAPENTIN 800 MG TABLET PO SCH (23:35)
[2024-04-30] MEDS ORDERED: CEFEPIME HCL 1,000 MG in 0.9 % SODIUM CHLORIDE 50 ML IV SCH (23:41)
[2024-04-30] MEDS ORDERED: VANCOMYCIN HCL 1,000 MG VIAL IV SCH (23:43)
[2024-04-30] MEDS ORDERED: ONDANSETRON 4 MG TAB.RAPDIS PO PRN (23:45)
[2024-04-30] MEDS ORDERED: fentaNYL 50 MCG PATCH.TD72 TD SCH (23:45)
[2024-04-30] MEDS ORDERED: MORPHINE SULFATE 4 MG/ML VIAL IV PRN (23:45)
[2024-04-30] MEDS ORDERED: hydrALAZINE HCL 20 MG VIAL IV PRN (23:45)
[2024-04-30 23:55] LABS: URINE CRYSTALS MANY /HPF; URINE PROTEIN 300 (NEGATIVE)
[2024-05-01] MEDS ORDERED: LOSARTAN POTASSIUM 25 MG TABLET PO SCH (09:00)
[2024-05-01] MEDS ORDERED: PANTOPRAZOLE SODIUM 40 MG in 0.9 % SODIUM CHLORIDE 8 ML IV PUSH SCH (09:00)
[2024-05-01] MEDS ORDERED: Duloxetine HCl 30 MG CAPSULE.DR PO SCH (09:00)
[2024-05-01] MEDS ORDERED: NIFEDIPINE 30 MG TAB.SA.OSM PO SCH (09:00)
[2024-05-01] MEDS ORDERED: METHYLPREDNISOLONE SOD SUCC 125 MG VIAL IV NR (15:30)
[2024-05-01] MEDS ORDERED: DIPHENHYDRAMINE HCL 50 MG/ML VIAL 1ML IV NR (15:30)
[2024-05-01] MEDS ORDERED: CEFEPIME HCL 2,000 MG in 0.9 % SODIUM CHLORIDE 100 ML IV SCH (17:00)
[2024-05-01] MEDS ORDERED: LEVALBUTEROL HCL 1.25 MG/3 ML SOLUTION IH SCH (17:00)
[2024-05-01 19:13] LABS: ABG PH 7.425 (7.35-7.45); ABG PO2 67.7 mmHg (80-100); ABG pCO2 35.3 mmHg (35-45); BASE EXCESS -1.2 mmol/l; BICARBONATE 22.6 mmol/l (23-25); SaO2 93.6 %; Tco2 23.7 mmol/l
[2024-05-01 19:46] LABS: allen test SATISFACTORY; o2 36 %; puncture site RADIAL LEFT
[2024-05-01] MEDS ORDERED: VANCOMYCIN HCL 5 MG/ML REDILUIDO IV SCH (21:00)
[2024-05-01] MEDS ORDERED: TEMAZEPAM 15 MG CAPSULE PO SCH (21:00)
[2024-05-02 07:37] LABS: HEMATOCRIT 29.6 % (36.0-45.00); HEMOGLOBIN 10.3 g/dL (12.0-15.00); MEAN CELL VOLUME 84.3 fL (80.00-100.00); MEAN CORPUSCULAR HEMOGLOBIN 29.3 pg (27.00-32.0); MEAN CORPUSCULAR HGB CONC 34.7 g/dl (32.0-36.0); RED BLOOD COUNT 3.51 M/uL (4.00-6.00)
[2024-05-02] MEDS ORDERED: PANTOPRAZOLE SODIUM 40 MG/VIAL VIAL ONE (08:26)
[2024-05-02 08:52] LABS: PLATELET COUNT 29 K/uL (150-450)
[2024-05-02] MEDS ORDERED: MAGNESIUM HYDROXIDE 30 ML BLIST.PACK PO NR (09:00)
[2024-05-02] MEDS ORDERED: PHENAZOPYRIDINE HCL 100 MG TABLET PO SCH (09:00)
[2024-05-02] MEDS ORDERED: MINERAL OIL 30 ML BLIST.PACK PO NR (09:00)
[2024-05-02] MEDS ORDERED: LACTULOSE 20 G/30 ML BLIST.PACK PO NR (09:00)
[2024-05-02] MEDS ORDERED: FILGRASTIM-AAFI 300 MCG/0.5 ML SYRINGE SUBCUTANEO SCH (09:00)
[2024-05-02 09:37] LABS: INR 1.3; PARTIAL THROMBOPLASTIN TIME 29.6 SECONDS (22.0-34.0); PROTHROMBIN TIME 13.4 SECONDS (9.0-11.5)
[2024-05-02 09:43] LABS: ALBUMIN 1.9 gm/dL (3.4-5.0); BILIRUBIN TOTAL 4.23 mg/dL (0.3-1.2); BILIRUBIN,CONJUGATED 3.35 mg/dL (0.0-0.2); BILIRUBIN,UNCONJUGATED 0.88 mg/dL (0.0-0.6); CALCIUM 8.1 mg/dL (8.5-10.1); CREATININE SERUM 0.89 mg/dL (0.55-1.02); GFR 62.35; GLOBULINA 3.5 G/DL (2.4-3.5); POTASSIUM 3.61 mEq/L (3.5-5.1); TOTAL PROTEIN 5.4 gm/dL (6.4-8.2)
[2024-05-02 09:51] LABS: CHOL HDL RATIO 7.6 (0-5.0)
[2024-05-02] MEDS ORDERED: HALOPERIDOL LACTATE 5 MG/ML AMPUL IV STA (18:17)
[2024-05-02] MEDS ORDERED: HALOPERIDOL LACTATE 5 MG/ML AMPUL IV PRN (18:30)
[2024-05-02 22:23] LABS: HEMATOCRIT 32.3 % (36.0-45.00); MEAN CELL VOLUME 85.7 fL (80.00-100.00); MEAN CORPUSCULAR HEMOGLOBIN 28.6 pg (27.00-32.0); MEAN CORPUSCULAR HGB CONC 33.4 g/dl (32.0-36.0); RED BLOOD COUNT 3.77 M/uL (4.00-6.00); RED CELL DISTRIBUTION WIDTH 16.2 % (11.5-14.5)
[2024-05-02 22:29] LABS: HEMOGLOBIN 10.8 g/dL (12.0-15.00); PLATELET COUNT 28 K/uL (150-450)
[2024-05-03 06:41] LABS: HEMATOCRIT 28.7 % (36.0-45.00); HEMOGLOBIN 9.8 g/dL (12.0-15.00); MEAN CELL VOLUME 84.2 fL (80.00-100.00); MEAN CORPUSCULAR HEMOGLOBIN 28.9 pg (27.00-32.0); MEAN CORPUSCULAR HGB CONC 34.3 g/dl (32.0-36.0); RED CELL DISTRIBUTION WIDTH 16.2 % (11.5-14.5)
[2024-05-03 07:13] LABS: ALBUMIN 1.8 gm/dL (3.4-5.0); BILIRUBIN TOTAL 1.47 mg/dL (0.3-1.2); CALCIUM 8.2 mg/dL (8.5-10.1); CREATININE SERUM 1.15 mg/dL (0.55-1.02); GFR 46.38; GLOBULINA 3.2 G/DL (2.4-3.5); MAGNESIUM 2.4 mg/dL (1.8-2.4); POTASSIUM 3.21 mEq/L (3.5-5.1)
[2024-05-03 07:57] LABS: PLATELET COUNT 28 K/uL (150-450)
[2024-05-03] MEDS ORDERED: INSULIN LISPRO 1,000 UNIT/10 ML UNITS SUBCUTANEO PRN (08:00)
[2024-05-03] MEDS ORDERED: DEXTROSE 50 % IN WATER 0.5 G/ML DISP.SYRIN IV PRN (08:00)
[2024-05-03] MEDS ORDERED: PANTOPRAZOLE SODIUM 40 MG/VIAL VIAL ONE (08:45)
[2024-05-03] MEDS ORDERED: RINGERS SOLUTION,LACTATED 1,000 ML IV STA (10:18)
[2024-05-03] MEDS ORDERED: POTASSIUM CHLORIDE IN WATER 100 ML IV NR (10:30)
[2024-05-03] MEDS ORDERED: POTASSIUM CHLORIDE 20MEQ/100ML H2O PB IV NR (11:14)
[2024-05-03] MEDS ORDERED: POTASSIUM BICARBONATE/CIT AC 25 MEQ TABLET.EFF PO SCH (13:00)
[2024-05-04] MEDS ORDERED: PANTOPRAZOLE SODIUM 40 MG/VIAL VIAL ONE (08:00)
[2024-05-04 08:58] LABS: HEMATOCRIT 33.9 % (36.0-45.00); HEMOGLOBIN 11.6 g/dL (12.0-15.00); MEAN CORPUSCULAR HEMOGLOBIN 29.2 pg (27.00-32.0); MEAN CORPUSCULAR HGB CONC 34.3 g/dl (32.0-36.0); RED BLOOD COUNT 3.99 M/uL (4.00-6.00); RED CELL DISTRIBUTION WIDTH 16.1 % (11.5-14.5)
[2024-05-04] MEDS ORDERED: VANCOMYCIN HCL 5 MG/ML REDILUIDO IV SCH (09:00)
[2024-05-04] MEDS ORDERED: Duloxetine HCl 60 MG CAPSULE.DR PO SCH (09:00)
[2024-05-04 09:31] LABS: ALBUMIN 1.7 gm/dL (3.4-5.0); BILIRUBIN TOTAL 1.1 mg/dL (0.3-1.2); CALCIUM 8.4 mg/dL (8.5-10.1); CREATININE SERUM 1.02 mg/dL (0.55-1.02); GFR 53.27; GLOBULINA 3.5 G/DL (2.4-3.5); MAGNESIUM 2.4 mg/dL (1.8-2.4); POTASSIUM 3.84 mEq/L (3.5-5.1); TOTAL PROTEIN 5.2 gm/dL (6.4-8.2)
[2024-05-04 09:34] LABS: PHOSPHOROUS 0.7 mg/dL (2.5-4.9)
[2024-05-04 10:17] LABS: PLATELET COUNT 45 K/uL (150-450)
[2024-05-04] MEDS ORDERED: RINGERS SOLUTION,LACTATED 500 ML IV STA (11:00)
[2024-05-04] MEDS ORDERED: RINGERS SOLUTION,LACTATED 1,000 ML IV SCH (11:00)
[2024-05-04] MEDS ORDERED: POTASSIUM PHOS,M-BASIC-D-BASIC 3 MM/ML VIAL IV SCH (13:00)
[2024-05-04] MEDS ORDERED: NAPH,MB-DB/K PH,MBDB 1 PKT PACKET PO SCH (17:00)
[2024-05-05] MEDS ORDERED: SODIUM CL 0.9% 100 ML IV.SOLN IV ONE ×2 (04:39→04:41)
[2024-05-05 08:05] LABS: HEMATOCRIT 35.1 % (36.0-45.00); HEMOGLOBIN 11.8 g/dL (12.0-15.00); MEAN CELL VOLUME 85.3 fL (80.00-100.00); MEAN CORPUSCULAR HEMOGLOBIN 28.7 pg (27.00-32.0); MEAN CORPUSCULAR HGB CONC 33.7 g/dl (32.0-36.0); RED BLOOD COUNT 4.11 M/uL (4.00-6.00); RED CELL DISTRIBUTION WIDTH 16.5 % (11.5-14.5)
[2024-05-05 08:29] LABS: ALBUMIN 1.5 gm/dL (3.4-5.0); BILIRUBIN TOTAL 0.82 mg/dL (0.3-1.2); CALCIUM 7.9 mg/dL (8.5-10.1); CREATININE SERUM 0.82 mg/dL (0.55-1.02); GFR 68.53; GLOBULINA 3.1 G/DL (2.4-3.5); PHOSPHOROUS 3.2 mg/dL (2.5-4.9); POTASSIUM 4.59 mEq/L (3.5-5.1); TOTAL PROTEIN 4.6 gm/dL (6.4-8.2)
[2024-05-05] MEDS ORDERED: PANTOPRAZOLE SODIUM 40 MG/VIAL VIAL ONE (08:37)
[2024-05-05 09:15] LABS: PLATELET COUNT 52 K/uL (150-450)
[2024-05-05] MEDS ORDERED: TEMAZEPAM 15 MG CAPSULE PO PRN (17:11)
[2024-05-05] MEDS ORDERED: GABAPENTIN 800 MG TABLET PO SCH (21:00)
[2024-05-06 09:22] LABS: HEMOGLOBIN 10.9 g/dL (12.0-15.00); MEAN CELL VOLUME 85.5 fL (80.00-100.00); MEAN CORPUSCULAR HEMOGLOBIN 28.2 pg (27.00-32.0); RED BLOOD COUNT 3.86 M/uL (4.00-6.00); RED CELL DISTRIBUTION WIDTH 16.9 % (11.5-14.5)
[2024-05-06 10:12] LABS: PLATELET COUNT 68 K/uL (150-450)
[2024-05-06] MEDS ORDERED: GABAPENTIN 600 MG TABLET PO PRN (18:15)
[2024-05-07 08:36] LABS: HEMATOCRIT 32.7 % (36.0-45.00); MEAN CELL VOLUME 86.4 fL (80.00-100.00); MEAN CORPUSCULAR HGB CONC 33.5 g/dl (32.0-36.0); RED BLOOD COUNT 3.79 M/uL (4.00-6.00); RED CELL DISTRIBUTION WIDTH 16.9 % (11.5-14.5)
[2024-05-07 08:46] LABS: ALBUMIN 1.6 gm/dL (3.4-5.0); BILIRUBIN TOTAL 0.58 mg/dL (0.3-1.2); CALCIUM 8.3 mg/dL (8.5-10.1); CREATININE SERUM 0.56 mg/dL (0.55-1.02); GFR 106.41; GLOBULINA 3.1 G/DL (2.4-3.5); POTASSIUM 4.15 mEq/L (3.5-5.1); TOTAL PROTEIN 4.7 gm/dL (6.4-8.2)
[2024-05-07 09:56] LABS: PLATELET COUNT 76 K/uL (150-450)
[2024-05-07] MEDS ORDERED: CEFEPIME HCL 2,000 MG in 0.9 % SODIUM CHLORIDE 100 ML IV SCH (17:00)
[2024-05-09] MEDS ORDERED: NIFEDIPINE 30 MG TAB.SA.OSM PO SCH ×2 (14:27→20:35)
[2024-05-10] MEDS ORDERED: PANTOPRAZOLE SODIUM 40 MG/VIAL VIAL ONE (07:54)
[2024-05-10 08:48] LABS: HEMOGLOBIN 10.2 g/dL (12.0-15.00); MEAN CELL VOLUME 86.1 fL (80.00-100.00); MEAN CORPUSCULAR HEMOGLOBIN 28.4 pg (27.00-32.0); MEAN CORPUSCULAR HGB CONC 32.9 g/dl (32.0-36.0); PLATELET COUNT 183 K/uL (150-450); RED CELL DISTRIBUTION WIDTH 16.5 % (11.5-14.5)
[2024-05-10 09:22] LABS: ALBUMIN 1.9 gm/dL (3.4-5.0); BILIRUBIN TOTAL 0.56 mg/dL (0.3-1.2); CALCIUM 8.1 mg/dL (8.5-10.1); CREATININE SERUM 0.46 mg/dL (0.55-1.02); GFR 133.53; GLOBULINA 3.2 G/DL (2.4-3.5); MAGNESIUM 1.7 mg/dL (1.8-2.4); PHOSPHOROUS 2.6 mg/dL (2.5-4.9); POTASSIUM 4.22 mEq/L (3.5-5.1); TOTAL PROTEIN 5.1 gm/dL (6.4-8.2)
[2024-05-10] MEDS ORDERED: MAGNESIUM SULFATE IN WATER 50 ML IV NR (10:15)
[2024-05-10] MEDS ORDERED: CLOTRIMAZOLE 10 MG TROCHE MM SCH (21:41)
[2024-05-11] MEDS ORDERED: BARIUM SULFATE 450 ML ORAL.SUSP PO ONE (08:15)
[2024-05-11] MEDS ORDERED: PANTOPRAZOLE SODIUM 40 MG TABLET.DR PO SCH (09:00)
[2024-05-11] MEDS ORDERED: VITAMIN B COMPLEX 1 EACH PO SCH (09:00)
[2024-05-11] MEDS ORDERED: DIPHENHYDRAMINE HCL 50 MG/ML VIAL 1ML IV NR (11:45)
[2024-05-11] MEDS ORDERED: METHYLPREDNISOLONE SOD SUCC 40 MG VIAL IV NR (11:45)
[2024-05-11] MEDS ORDERED: ONDANSETRON HCL 2 MG/ML VIAL IV NR (16:28)
[2024-05-11] MEDS ORDERED: NIFEDIPINE 30 MG TAB.SA.OSM PO NR (19:00)
[2024-05-12 07:52] LABS: HEMOGLOBIN 10.2 g/dL (12.0-15.00); MEAN CELL VOLUME 85.4 fL (80.00-100.00); MEAN CORPUSCULAR HEMOGLOBIN 28.9 pg (27.00-32.0); MEAN CORPUSCULAR HGB CONC 33.9 g/dl (32.0-36.0); PLATELET COUNT 230 K/uL (150-450); RED BLOOD COUNT 3.51 M/uL (4.00-6.00); RED CELL DISTRIBUTION WIDTH 16.6 % (11.5-14.5)
[2024-05-12 08:50] LABS: ALBUMIN 1.9 gm/dL (3.4-5.0); BILIRUBIN TOTAL 0.53 mg/dL (0.3-1.2); CALCIUM 8.3 mg/dL (8.5-10.1); CREATININE SERUM 0.38 mg/dL (0.55-1.02); GFR 166.47; GLOBULINA 3.1 G/DL (2.4-3.5); MAGNESIUM 1.6 mg/dL (1.8-2.4); POTASSIUM 3.83 mEq/L (3.5-5.1)
[2024-05-12] MEDS ORDERED: APIXABAN 2.5 MG TABLET PO SCH (09:00)
[2024-05-12] MEDS ORDERED: APIXABAN 5 MG TABLET PO SCH (09:00)
[2024-05-12] MEDS ORDERED: NIFEDIPINE 60 MG TAB.SA.OSM PO SCH (09:00)
[2024-05-12] MEDS ORDERED: MAGNESIUM SULFATE IN WATER 50 ML IV NR (10:30)
[2024-05-13] MEDS ORDERED: fentaNYL 50 MCG PATCH.TD72 TD SCH (15:00)
[2024-05-14] MEDS ORDERED: TEMAZEPAM 15 MG CAPSULE PO PRN (00:15)
[2024-05-14 14:38] LABS: URINE APPEARANCE Turbid; URINE BILIRRUBIN Small (NEGATIVE); URINE BLOOD Large; URINE COLOR Red; URINE GLUCOSE Negative (NEGATIVE); URINE KETONE Negative (NEGATIVE); URINE LEUKOCYTE Moderate; URINE NITRATE Negative; URINE UROBILINOGEN 0.2 E.U./dl
[2024-05-14 14:42] LABS: URINE BACTERIA 546.8 uL (0.0-1933); URINE CAST 1.68 uL (0.0-1.40); URINE EPITHELIAL CELLS 3.5 uL (0.0-38.8); URINE WBC 1223.4 uL (0.0-23.2)
[2024-05-14 15:02] LABS: URINE PROTEIN 300 (NEGATIVE); URINE RBC > 10558.9 uL (0.0-20.8)
[2024-05-14 15:03] LABS: URINE YEAST FEW /hpf
[2024-05-14] MEDS ORDERED: PHENAZOPYRIDINE HCL 100 MG TABLET PO SCH (20:36)
[2024-05-14] MEDS ORDERED: AMINOCAPROIC ACID 250 MG/ML VIAL IV ONE (20:45)
[2024-05-14] MEDS ORDERED: LIDOCAINE HCL 1% 10ML VIAL IJ ONE (21:00)
[2024-05-14] MEDS ORDERED: LIDOCAINE HCL 1%/EPINEPHRINE 20ML VIAL IJ ONE (21:00)
[2024-05-15] MEDS ORDERED: METOCLOPRAMIDE HCL 5 MG/ML VIAL IV PRN (16:00)
[2024-05-15 16:46] LABS: ABG PH 7.448 (7.35-7.45); ABG pCO2 47.5 mmHg (35-45)
[2024-05-15 16:48] LABS: ABG PO2 59.4 mmHg (80-100); BASE EXCESS 6.9 mmol/l; BICARBONATE 32.1 mmol/l (23-25); SaO2 92.1 %; Tco2 33.6 mmol/l; allen test SATISFACTORY; o2 21 %; puncture site RADIAL RIGHT
[2024-05-15] MEDS ORDERED: FLUCONAZOLE IN NACL,ISO-OSM 100 ML IV SCH (18:59)
[2024-05-15] MEDS ORDERED: OxyCODONE HCL ER 10MG TAB (OxyCONTIN) PO PRN (19:15)
[2024-05-15] MEDS ORDERED: FUROsemide 20 MG/2 ML VIAL IV SCH (21:00)
[2024-05-15] MEDS ORDERED: ALBUMIN HUMAN-25 0.25GM/ML (50ML) VIAL IV SCH (21:00)
[2024-05-16] MEDS ORDERED: ALBUMIN HUMAN 100 ML VIAL IV SCH (10:00)
[2024-05-17] MEDS ORDERED: FLUCONAZOLE IN NACL,ISO-OSM 100 ML IV SCH (09:00)
[2024-05-18 19:18] LABS: HEMATOCRIT 28.1 % (36.0-45.00); HEMOGLOBIN 9.5 g/dL (12.0-15.00); MEAN CELL VOLUME 86.7 fL (80.00-100.00); MEAN CORPUSCULAR HEMOGLOBIN 29.1 pg (27.00-32.0); MEAN CORPUSCULAR HGB CONC 33.6 g/dl (32.0-36.0); PLATELET COUNT 291 K/uL (150-450); RED BLOOD COUNT 3.24 M/uL (4.00-6.00); RED CELL DISTRIBUTION WIDTH 17.2 % (11.5-14.5)
[2024-05-18 20:01] LABS: ALBUMIN 3.2 gm/dL (3.4-5.0); BILIRUBIN TOTAL 0.52 mg/dL (0.3-1.2); CREATININE SERUM 0.58 mg/dL (0.55-1.02); GFR 102.19; MAGNESIUM 1.5 mg/dL (1.8-2.4); PHOSPHOROUS 2.9 mg/dL (2.5-4.9); POTASSIUM 3.1 mEq/L (3.5-5.1); TOTAL PROTEIN 6.2 gm/dL (6.4-8.2)
[2024-05-19] MEDS ORDERED: MAGNESIUM SULFATE IN WATER 50 ML IV STA (09:08)
[2024-05-19] MEDS ORDERED: POTASSIUM CHLORIDE IN WATER 100 ML IV NR (09:15)
[2024-05-19] MEDS ORDERED: POTASSIUM BICARBONATE/CIT AC 25 MEQ TABLET.EFF PO SCH (13:00)
[2024-05-19] MEDS ORDERED: NEOMYCIN/POLYMYXIN B/HYDROCORT 20 DR/ML BOTTLE OT SCH (18:04)
[2024-05-20] MEDS ORDERED: ONDANSETRON 4 MG TAB.RAPDIS PO PRN (12:00)
[2024-05-20] MEDS ORDERED: DUI500 PO (12:12)
[2024-05-20] MEDS ORDERED: INTESTINEX680 M2 PO (12:12)
[2024-05-20] MEDS ORDERED: FLUCONAZOLE200 MG PO (12:12)
[2024-05-20] MEDS ORDERED: DULOXETINE HCL60 MG PO (12:13)
[2024-05-20] MEDS ORDERED: INTEGRA PLUS C1 EACH PO (12:13)
[2024-05-20] MEDS ORDERED: NIFEDIPINE ER60 MG PO (12:13)
[2024-05-20] MEDS ORDERED: VITAMIN B-121000 MC4 PO (12:13)
[2024-05-20] MEDS ORDERED: NEURONTIN600 MG PO (12:14)
[2024-05-20] MEDS ORDERED: RESTORIL15 MG PO (12:15)
[2024-05-20] MEDS ORDERED: FENTANYL1 EAC4 TD (12:15)
[2024-05-20] MEDS ORDERED: OXYCONTIN10 M1 PO (12:15)
[2024-05-20] MEDS ORDERED: PANTOPRAZOLE SO40 MG PO (12:16)
[2024-05-20] MEDS ORDERED: ONDANSETRON ODT4 MG PO (12:16)
[2024-05-20] MEDS ORDERED: CEFADROXIL 500 MG CAPSULE PO SCH (17:00)
[2024-05-20 19:01] LABS: ABG PH 7.519 (7.35-7.45); ABG PO2 65.3 mmHg (80-100); ABG pCO2 42.4 mmHg (35-45); BASE EXCESS 9.8 mmol/l; BICARBONATE 33.8 mmol/l (23-25); SaO2 95.2 %; Tco2 35.1 mmol/l
[2024-05-20 19:07] LABS: allen test SATISFACTORY; o2 21 %; puncture site RADIAL RIGHT
[2024-05-21] MEDS ORDERED: FLUCONAZOLE 200 MG TABLET PO SCH (09:00)
[2024-05-21 13:04] LABS: ABG PH 7.502 (7.35-7.45); ABG PO2 65.7 mmHg (80-100); ABG pCO2 45.1 mmHg (35-45); BICARBONATE 34.5 mmol/l (23-25); Tco2 35.9 mmol/l
[2024-05-21 13:34] LABS: allen test SATISFACTORY; o2 21 %; puncture site RADIAL RIGHT
[2024-05-21] MEDS ORDERED: METOCLOPRAMIDE HCL 5 MG/ML VIAL IV STA (13:59)
[2024-05-21] MEDS ORDERED: ONDANSETRON HCL 2 MG/ML VIAL IV STA (14:00)
== END 2024-05-21 15:36 | disposition designated cancer center or children's hospital (05) | DRG 871 ==
LOC: ER 20:36 → MEDJ 23:43
PROVIDERS: General Practice; Internal Medicine; Internal Medicine Hematology & Oncology; Internal Medicine Infectious Disease; ADMIT Internal Medicine; ATTEND Internal Medicine
PROC: BW28ZZZ Computerized Tomography (CT Scan) of Head (ICD-10-PCS; principal; 2024-04-30)
PROC: 8E0ZXY6 Isolation (ICD-10-PCS; 2024-04-30)
PROC: BB24Y0Z Computerized Tomography (CT Scan) of Bilateral Lungs using Other Contrast, Unenhanced and Enhanced (ICD-10-PCS; 2024-05-01)
PROC: 3E0F7GC Introduction of Other Therapeutic Substance into Respiratory Tract, Via Natural or Artificial Opening (ICD-10-PCS; 2024-05-01)
PROC: 4A12X4Z Monitoring of Cardiac Electrical Activity, External Approach (ICD-10-PCS; 2024-05-01)
PROC: 30233N1 Transfusion of Nonautologous Red Blood Cells into Peripheral Vein, Percutaneous Approach (ICD-10-PCS; 2024-05-01)
PROC: 30233R1 Transfusion of Nonautologous Platelets into Peripheral Vein, Percutaneous Approach (ICD-10-PCS; 2024-05-02)
PROC: 02HV33Z Insertion of Infusion Device into Superior Vena Cava, Percutaneous Approach (ICD-10-PCS; 2024-05-10)
PROC: BW21YZZ Computerized Tomography (CT Scan) of Abdomen and Pelvis using Other Contrast (ICD-10-PCS; 2024-05-11)
PROC: 0JPV0XZ Removal of Tunneled Vascular Access Device from Upper Extremity Subcutaneous Tissue and Fascia, Open Approach (ICD-10-PCS; 2024-05-14)
DX: A41.9 Sepsis, unspecified organism (principal); J16.8 Pneumonia due to other specified infectious organisms; T82.7XXA Infection and inflammatory reaction due to other cardiac and vascular devices, implants and grafts, initial encounter; D61.818 Other pancytopenia; N39.0 Urinary tract infection, site not specified; J90 Pleural effusion, not elsewhere classified; R09.02 Hypoxemia; Y65.8 Other specified misadventures during surgical and medical care; D63.0 Anemia in neoplastic disease; D64.81 Anemia due to antineoplastic chemotherapy; E09.65 Drug or chemical induced diabetes mellitus with hyperglycemia; Z79.4 Long term (current) use of insulin; B95.7 Other staphylococcus as the cause of diseases classified elsewhere; R31.9 Hematuria, unspecified; Z66 Do not resuscitate; C54.1 Malignant neoplasm of endometrium; C55 Malignant neoplasm of uterus, part unspecified; I87.2 Venous insufficiency (chronic) (peripheral); D69.6 Thrombocytopenia, unspecified; G89.3 Neoplasm related pain (acute) (chronic); D70.8 Other neutropenia; E03.9 Hypothyroidism, unspecified

== ENCOUNTER 2024-07-22 10:14 | Outpatient (CLI) | payer OTHER ==
[~2024-07-22 10:14] MED LIST changes: +DUI500 PO; +DULOXETINE HCL60 MG PO; +FLUCONAZOLE200 MG PO; +INTESTINEX680 M2 PO; +NEURONTIN600 MG PO; +NIFEDIPINE ER60 MG PO; +ONDANSETRON ODT4 MG PO; +PANTOPRAZOLE SO40 MG PO; +VITAMIN B-121000 MC4 PO
== END 2024-07-22 10:23 | disposition home or self-care (01) ==
LOC: TOM 10:14
PROVIDERS: ATTEND Internal Medicine Hematology & Oncology
DX: C55 Malignant neoplasm of uterus, part unspecified (principal); C78.6 Secondary malignant neoplasm of retroperitoneum and peritoneum
CPT/HCPCS: 74177; Q9965

== ENCOUNTER 2024-08-20 16:02 | Emergency (ER) | payer OTHER ==
[~2024-08-20] VITALS: Ht 157.5 cm; Wt 72.6 kg
[2024-08-20 18:20] LABS: HEMATOCRIT 31.7 % (36.0-45.00); HEMOGLOBIN 10.8 g/dL (12.0-15.00); MEAN CELL VOLUME 85.3 fL (80.00-100.00); MEAN CORPUSCULAR HEMOGLOBIN 29.1 pg (27.00-32.0); MEAN CORPUSCULAR HGB CONC 34.1 g/dl (32.0-36.0); PLATELET COUNT 225 K/uL (150-450); RED BLOOD COUNT 3.72 M/uL (4.00-6.00); RED CELL DISTRIBUTION WIDTH 14.9 % (11.5-14.5)
[2024-08-20 18:39] LABS: PH,URINE 5.5 (5.0-8.0); URINE APPEARANCE Cloudy; URINE BILIRRUBIN Negative (NEGATIVE); URINE BLOOD Large; URINE COLOR Orange; URINE GLUCOSE Negative (NEGATIVE); URINE KETONE Negative (NEGATIVE); URINE LEUKOCYTE Moderate; URINE NITRATE Negative; URINE UROBILINOGEN 0.2 E.U./dl
[2024-08-20 18:40] LABS: URINE BACTERIA 226.7 uL (0.0-1933); URINE EPITHELIAL CELLS 8.1 uL (0.0-38.8); URINE WBC 224.7 uL (0.0-23.2)
[2024-08-20 19:31] LABS: URINE CAST 0.61 uL (0.0-1.40); URINE PROTEIN 300 (NEGATIVE); URINE RBC > 10558.9 uL (0.0-20.8)
[2024-08-20 19:32] LABS: URINE YEAST MODERATE /hpf
[2024-08-20 19:45] LABS: CALCIUM 9.2 mg/dL (8.5-10.1); CREATININE SERUM 1.94 mg/dL (0.55-1.02); GFR 25.37; POTASSIUM 5.17 mEq/L (3.5-5.1)
== END 2024-08-20 23:50 | disposition home or self-care (01) ==
LOC: ER 16:04
PROVIDERS: Emergency Medicine
DX: Z92.21 Personal history of antineoplastic chemotherapy (principal); Z91.013 Allergy to seafood

== ENCOUNTER 2024-08-25 17:52 | Inpatient (IN) | payer OTHER ==
[~2024-08-25] VITALS: Ht 152.4 cm; Wt 72.6 kg
--- NOTE | 2024-08-25 17:59 | NUR ---
PACIENTE ALERTA Y ORIENTADA X3 QUIEN REFIERE DOLOR EN LA ESPALDA. SE MONITOREAN S/V Y SE UBICA PACIENTE.
[2024-08-25] MEDS ORDERED: TRAMADOL HCL 50 MG TABLET PO ONE ×2 (18:15→19:00)
[2024-08-25] MEDS ORDERED: MORPHINE SULFATE 4 MG/ML VIAL IV ONE (18:15)
[2024-08-25] MEDS ORDERED: CEFTRIAXONE SODIUM 1,000 MG VIAL IV ONE (18:15)
[2024-08-25] MEDS ORDERED: FAMOTIDINE/PF 20 MG/2 ML VIAL IV ONE (18:15)
[2024-08-25 18:53] LABS: HEMATOCRIT 31.9 % (36.0-45.00); HEMOGLOBIN 10.8 g/dL (12.0-15.00); MEAN CELL VOLUME 85.4 fL (80.00-100.00); MEAN CORPUSCULAR HEMOGLOBIN 28.9 pg (27.00-32.0); MEAN CORPUSCULAR HGB CONC 33.8 g/dl (32.0-36.0); PLATELET COUNT 192 K/uL (150-450); RED BLOOD COUNT 3.74 M/uL (4.00-6.00)
[2024-08-25 18:58] LABS: ERYTHROCYTE SEDIMENTATION RATE 94 mm/hr
--- NOTE | 2024-08-25 19:02 | NUR ---
SE ORIENTA A PACIENTE SOBRE ORDENES MEDICAS, REFIERE ENTENDER. SE COLECTAN MUESTRAS DE LABORATORIO BAJO MEDIDAS ASEPTICAS. SE CANALIZA Y SE ADMINISTRAN MEDICAMENTOS CLEMENTE ORDEN MEDICA. SE NOTIFICA X-RAY Y CT. SE REALIZA EKG.
[2024-08-25 19:16] LABS: INR 0.96; PARTIAL THROMBOPLASTIN TIME 25.2 SECONDS (22.0-34.0); PROTHROMBIN TIME 10.5 SECONDS (9.0-11.5)
[2024-08-25 19:22] LABS: ALBUMIN 3.4 gm/dL (3.4-5.0); BILIRUBIN TOTAL 0.25 mg/dL (0.3-1.2); CREATININE SERUM 1.53 mg/dL (0.55-1.02); GFR 33.27; GLOBULINA 4.2 G/DL (2.4-3.5); POTASSIUM 4.46 mEq/L (3.5-5.1); TOTAL PROTEIN 7.6 gm/dL (6.4-8.2)
[2024-08-25 19:26] LABS: C-REACTIVE PROTEIN 5.67 MG/DL (0.00-0.29)
[2024-08-25 20:01] LABS: PH,URINE 5.5 (5.0-8.0); URINE APPEARANCE Cloudy; URINE BILIRRUBIN Negative (NEGATIVE); URINE BLOOD Large; URINE COLOR Orange; URINE GLUCOSE Negative (NEGATIVE); URINE KETONE Negative (NEGATIVE); URINE LEUKOCYTE Large; URINE NITRATE Negative; URINE UROBILINOGEN 0.2 E.U./dl
[2024-08-25 20:05] LABS: URINE BACTERIA 938.6 uL (0.0-1933); URINE EPITHELIAL CELLS 11.7 uL (0.0-38.8); URINE RBC 4631.4 uL (0.0-20.8); URINE WBC 319.8 uL (0.0-23.2)
[2024-08-25 20:13] LABS: URINE CAST 0.15 uL (0.0-1.40); URINE PROTEIN 300 (NEGATIVE)
[2024-08-25] MEDS ORDERED: GABAPENTIN 250 MG/5 ML ML PO SCH (21:18)
[2024-08-25] MEDS ORDERED: MORPHINE SULFATE 4 MG/ML VIAL IV PRN (21:30)
[2024-08-25] MEDS ORDERED: IPRATROPIUM BROMIDE 0.5 MG/2.5 ML AMPUL.NEB IH SCH (21:38)
[2024-08-25] MEDS ORDERED: GUAIFEN/DEXTROMETHORPHAN/PE 10 ML BLIST.PACK PO SCH (21:42)
[2024-08-25] MEDS ORDERED: PANTOPRAZOLE SODIUM 40 MG/VIAL VIAL IV SCH (21:42)
[2024-08-25] MEDS ORDERED: CEFTRIAXONE SODIUM 2,000 MG in 0.9 % SODIUM CHLORIDE 100 ML IV SCH (21:43)
[2024-08-25] MEDS ORDERED: MEPERIDINE HCL/PF 25 MG/ML VIAL IM ONE (21:45)
[2024-08-25] MEDS ORDERED: 0.9 % SODIUM CHLORIDE 1,000 ML IV SCH (21:45)
[2024-08-26 04:48] VITALS: BP 151/68; O2SAT 99
[2024-08-26 04:53] VITALS: BP 151/68
[2024-08-26] MEDS ORDERED: IRON FUM,PS/FOLIC/BCOMP,C NO.9 1 CAP CAPSULE PO SCH (09:00)
[2024-08-26 15:45] VITALS: BP 150/74; O2SAT 96
[2024-08-26] MEDS ORDERED: METHYLPREDNISOLONE ACETATE 40 MG/ML VIAL IU SCH (20:15)
[2024-08-26 23:53] VITALS: BP 180/92; O2SAT 98
[2024-08-27] MEDS ORDERED: METHYLPREDNISOLONE SOD SUCC 40 MG VIAL IV SCH (09:00)
[2024-08-27 09:52] VITALS: BP 146/79; O2SAT 96
[2024-08-27 13:19] LABS: ALBUMIN 2.9 gm/dL (3.4-5.0); CALCIUM 8.6 mg/dL (8.5-10.1); CREATININE SERUM 1.34 mg/dL (0.55-1.02); GFR 38.77; PHOSPHOROUS 3.1 mg/dL (2.5-4.9); POTASSIUM 5.21 mEq/L (3.5-5.1)
[2024-08-27 18:00] VITALS: BP 155/75; O2SAT 96
[2024-08-27] MEDS ORDERED: OxyCODONE HCL 5 MG TABLET (ROXICODONE) PO SCH ×2 (21:15→21:38)
[2024-08-27] MEDS ORDERED: fentaNYL 50 MCG PATCH.TD72 TD STA (21:38)
[2024-08-27] MEDS ORDERED: DIPHENHYDRAMINE HCL 50 MG/ML VIAL 1ML IV PRN (21:45)
[2024-08-27] MEDS ORDERED: ONDANSETRON HCL 2 MG/ML VIAL IV PRN (21:45)
[2024-08-27] MEDS ORDERED: NALOXONE HCL 0.4 MG/ML AMPUL IV PRN (21:45)
[2024-08-27] MEDS ORDERED: GABAPENTIN 400 MG CAPSULE PO SCH (21:45)
[2024-08-28 02:45] VITALS: BP 159/77; O2SAT 98
[2024-08-28 08:47] VITALS: BP 164/75; O2SAT 98
[2024-08-28] MEDS ORDERED: PANTOPRAZOLE SODIUM 40 MG TABLET.DR PO SCH (09:00)
[2024-08-28] MEDS ORDERED: OxyCODONE HCL 5 MG TABLET (ROXICODONE) PO PRN (10:15)
[2024-08-28] MEDS ORDERED: GABAPENTIN 400 MG CAPSULE PO SCH (13:00)
[2024-08-28 18:24] VITALS: BP 161/80
[2024-08-28] MEDS ORDERED: SENNA/DOCUSATE SODIUM 1 TAB TABLET PO SCH (21:00)
[2024-08-29] MEDS ORDERED: KETOROLAC TROMETHAMINE 30 MG VIAL IV STA ×2 (00:48→15:03)
[2024-08-29 02:56] VITALS: BP 164/90; O2SAT 95
[2024-08-29 10:37] VITALS: BP 139/65; O2SAT 97
[2024-08-29] MEDS ORDERED: LACTULOSE 20 G/30 ML BLIST.PACK PO STA (15:02)
[2024-08-29 17:47] VITALS: BP 182/86
[2024-08-29] MEDS ORDERED: KETOROLAC TROMETHAMINE 30 MG VIAL IV SCH (21:00)
[2024-08-29] MEDS ORDERED: LACTULOSE 20 G/30 ML BLIST.PACK PO SCH (21:00)
[2024-08-30 02:21] VITALS: BP 151/72; O2SAT 97
[2024-08-30 09:29] VITALS: BP 160/84; O2SAT 98
[2024-08-30] MEDS ORDERED: OxyCODONE HCL 5 MG TABLET (ROXICODONE) PO PRN (13:30)
[2024-08-30 18:31] VITALS: BP 173/82
[2024-08-30] MEDS ORDERED: fentaNYL 50 MCG PATCH.TD72 TD SCH (21:00)
[2024-08-31 01:26] VITALS: BP 174/79; O2SAT 99
[2024-08-31 07:23] LABS: HEMATOCRIT 31.3 % (36.0-45.00); HEMOGLOBIN 10.3 g/dL (12.0-15.00); MEAN CELL VOLUME 86.2 fL (80.00-100.00); MEAN CORPUSCULAR HEMOGLOBIN 28.5 pg (27.00-32.0); MEAN CORPUSCULAR HGB CONC 33.1 g/dl (32.0-36.0); PLATELET COUNT 138 K/uL (150-450); RED BLOOD COUNT 3.63 M/uL (4.00-6.00); RED CELL DISTRIBUTION WIDTH 15.2 % (11.5-14.5)
[2024-08-31 07:30] LABS: CALCIUM 8.4 mg/dL (8.5-10.1); CREATININE SERUM 1.35 mg/dL (0.55-1.02); GFR 38.44; POTASSIUM 5.13 mEq/L (3.5-5.1)
[2024-08-31 10:14] VITALS: BP 154/68; O2SAT 94
[2024-08-31] MEDS ORDERED: OxyCODONE HCL 5 MG TABLET (ROXICODONE) PO PRN (11:00)
[2024-08-31 18:37] VITALS: BP 144/69; O2SAT 96
[2024-09-01 01:06] VITALS: BP 156/75
[2024-09-01] MEDS ORDERED: fentaNYL 25 MCG PATCH.TD72 TD STA (01:25)
[2024-09-01] MEDS ORDERED: OxyCODONE HCL 5 MG TABLET (ROXICODONE) PO STA ×2 (01:26→10:33)
[2024-09-01] MEDS ORDERED: fentaNYL 50 MCG PATCH.TD72 TD STA (01:26)
[2024-09-01 10:19] VITALS: BP 155/80; O2SAT 97
[2024-09-01 17:44] LABS: PH,URINE 5.5 (5.0-8.0); URINE APPEARANCE Turbid; URINE BACTERIA 4370.9 uL (0.0-1933); URINE BILIRRUBIN Small (NEGATIVE); URINE BLOOD Large; URINE CAST 5.15 uL (0.0-1.40); URINE COLOR Orange; URINE GLUCOSE Negative (NEGATIVE); URINE KETONE Negative (NEGATIVE); URINE LEUKOCYTE Large; URINE NITRATE Negative; URINE UROBILINOGEN 0.2 E.U./dl; URINE WBC 2890.6 uL (0.0-23.2)
[2024-09-01 17:55] LABS: URINE PROTEIN 300 (NEGATIVE); URINE RBC > 10558.9 uL (0.0-20.8)
[2024-09-01 17:56] LABS: URINE YEAST MANY /hpf
[2024-09-01 18:29] VITALS: BP 141/78; O2SAT 97
[2024-09-02] MEDS ORDERED: OxyCODONE HCL 5 MG TABLET (ROXICODONE) PO PRN ×2 (01:30→09:30)
[2024-09-02 01:35] VITALS: BP 160/80; O2SAT 96
[2024-09-02 08:50] VITALS: BP 129/72
[2024-09-02 09:04] VITALS: BP 129/72
[2024-09-02] MEDS ORDERED: SULFAMETHOXAZOLE/TRIMETHOPRIM DS 1 TAB PO SCH (11:49)
[2024-09-02] MEDS ORDERED: FLUCONAZOLE 150 MG TABLET PO SCH (11:49)
[2024-09-02 19:14] VITALS: BP 146/76; O2SAT 98
[2024-09-02] MEDS ORDERED: GABAPENTIN 400 MG CAPSULE PO SCH (21:00)
[2024-09-03 01:54] VITALS: BP 160/85; O2SAT 100
[2024-09-03 09:42] VITALS: BP 157/77; O2SAT 95
[2024-09-03] MEDS ORDERED: ONDANSETRON HCL 2 MG/ML VIAL IV STA (10:33)
[2024-09-03] MEDS ORDERED: GABAPENTIN 800 MG TABLET PO SCH (13:00)
[2024-09-03] MEDS ORDERED: ONDANSETRON HCL 2 MG/ML VIAL IV SCH (17:00)
[2024-09-03] MEDS ORDERED: AMINOCAPROIC ACID 500 MG TABLET PO STA (17:19)
[2024-09-03] MEDS ORDERED: ALBUTEROL SULFATE 3 ML/2.5 MG AMPUL.NEB IH SCH (17:55)
[2024-09-03] MEDS ORDERED: AMINOCAPROIC ACID 250 MG/ML VIAL IV SCH (18:00)
[2024-09-03 18:42] VITALS: BP 168/83; O2SAT 98
[2024-09-04] VITALS (7 sets, daily range): BP systolic 130–182; BP diastolic 70–84; O2SAT 90–99
[2024-09-04 06:51] LABS: HEMATOCRIT 29.5 % (36.0-45.00); MEAN CELL VOLUME 85.9 fL (80.00-100.00); MEAN CORPUSCULAR HEMOGLOBIN 28.9 pg (27.00-32.0); MEAN CORPUSCULAR HGB CONC 33.7 g/dl (32.0-36.0); PLATELET COUNT 141 K/uL (150-450); RED BLOOD COUNT 3.44 M/uL (4.00-6.00); RED CELL DISTRIBUTION WIDTH 15.2 % (11.5-14.5)
[2024-09-04] MEDS ORDERED: OxyCODONE HCL 5 MG TABLET (ROXICODONE) PO PRN ×2 (08:15→14:49)
[2024-09-04 08:20] LABS: BILIRUBIN TOTAL 0.28 mg/dL (0.3-1.2); CREATININE SERUM 1.56 mg/dL (0.55-1.02); GFR 32.53; GLOBULINA 4.1 G/DL (2.4-3.5); POTASSIUM 5.15 mEq/L (3.5-5.1); TOTAL PROTEIN 7.1 gm/dL (6.4-8.2)
[2024-09-04] MEDS ORDERED: AMINOCAPROIC ACID 500 MG TABLET PO SCH (09:00)
[2024-09-04] MEDS ORDERED: fentaNYL 25 MCG PATCH.TD72 TD SCH (09:00)
[2024-09-04] MEDS ORDERED: fentaNYL 50 MCG PATCH.TD72 TD SCH (09:00)
[2024-09-04] MEDS ORDERED: LACTULOSE 20 G/30 ML BLIST.PACK PO STA (13:26)
[2024-09-04] MEDS ORDERED: Pregabalin 50 MG CAPSULE PO SCH (17:38)
[2024-09-04] MEDS ORDERED: LACTULOSE 20 G/30 ML BLIST.PACK PO SCH (21:00)
[2024-09-05] VITALS (9 sets, daily range): BP systolic 132–146; BP diastolic 67–81; O2SAT 92–98
[2024-09-05] MEDS ORDERED: Pregabalin 50 MG CAPSULE PO SCH (09:00)
[2024-09-05] MEDS ORDERED: MINERAL OIL PO STA (15:14)
[2024-09-05] MEDS ORDERED: MAGNESIUM HYDROXIDE PO STA (15:14)
[2024-09-05] MEDS ORDERED: MAGNESIUM HYDROXIDE PO SCH (21:00)
[2024-09-05] MEDS ORDERED: MINERAL OIL PO SCH (21:00)
[2024-09-06] VITALS (8 sets, daily range): BP systolic 121–152; BP diastolic 60–83; O2SAT 92–97
[2024-09-06] MEDS ORDERED: MINERAL OIL 30 ML BLIST.PACK PO SCH (09:00)
[2024-09-06] MEDS ORDERED: MAGNESIUM HYDROXIDE 30 ML BLIST.PACK PO SCH (09:00)
[2024-09-06] MEDS ORDERED: FAMOTIDINE/PF 20 MG/2 ML VIAL IV PUSH STA (13:28)
[2024-09-06] MEDS ORDERED: ONDANSETRON HCL 2 MG/ML VIAL IV STA (13:28)
[2024-09-06] MEDS ORDERED: MINERAL OIL 133 ML ENEMA RECTAL STA (18:36)
[2024-09-06] MEDS ORDERED: FAMOTIDINE/PF 20 MG/2 ML VIAL IV PUSH SCH (21:00)
[2024-09-06 23:20] LABS: HEMATOCRIT 29.5 % (36.0-45.00); HEMOGLOBIN 9.8 g/dL (12.0-15.00); MEAN CELL VOLUME 85.7 fL (80.00-100.00); MEAN CORPUSCULAR HEMOGLOBIN 28.4 pg (27.00-32.0); MEAN CORPUSCULAR HGB CONC 33.1 g/dl (32.0-36.0); PLATELET COUNT 153 K/uL (150-450); RED BLOOD COUNT 3.44 M/uL (4.00-6.00); RED CELL DISTRIBUTION WIDTH 15.1 % (11.5-14.5)
[2024-09-07] VITALS (8 sets, daily range): BP systolic 118–148; BP diastolic 64–74; O2SAT 90–99
[2024-09-07] MEDS ORDERED: DEXAMETHASONE SODIUM PHOSP/PF 10 MG/ML VIAL IJ ONE (00:30)
[2024-09-07] MEDS ORDERED: LACTULOSE 20 G/30 ML BLIST.PACK PO STA (18:59)
[2024-09-08] VITALS (7 sets, daily range): BP systolic 131–142; BP diastolic 65–76; O2SAT 95–100
[2024-09-08 02:20] LABS: URINE APPEARANCE Cloudy; URINE BILIRRUBIN Negative (NEGATIVE); URINE BLOOD Large; URINE COLOR Yellow; URINE EPITHELIAL CELLS 1.8 uL (0.0-38.8); URINE GLUCOSE Negative (NEGATIVE); URINE KETONE Negative (NEGATIVE); URINE LEUKOCYTE Large; URINE NITRATE Negative; URINE PROTEIN 30 (NEGATIVE); URINE RBC 104.7 uL (0.0-20.8); URINE UROBILINOGEN 0.2 E.U./dl; URINE WBC 976.2 uL (0.0-23.2)
[2024-09-08 02:28] LABS: URINE CAST 0.45 uL (0.0-1.40)
[2024-09-09 02:49] VITALS: BP 132/78; O2SAT 92
[2024-09-09 08:28] VITALS: BP 122/68; O2SAT 100
[2024-09-09] MEDS ORDERED: FAMOtidine 20 MG TABLET PO SCH (09:00)
[2024-09-09] MEDS ORDERED: Pregabalin 50 MG CAPSULE PO ONE (14:45)
[2024-09-09] MEDS ORDERED: KETOROLAC TROMETHAMINE 30 MG VIAL IV NR (15:00)
[2024-09-09] MEDS ORDERED: Pregabalin 50 MG,Pregabalin 25 MG PO SCH (17:00)
[2024-09-09 19:38] VITALS: BP 136/74; O2SAT 98
[2024-09-09 19:48] LABS: HEMATOCRIT 24.5 % (36.0-45.00); MEAN CELL VOLUME 84.4 fL (80.00-100.00); MEAN CORPUSCULAR HEMOGLOBIN 28.8 pg (27.00-32.0); MEAN CORPUSCULAR HGB CONC 34.3 g/dl (32.0-36.0); PLATELET COUNT 145 K/uL (150-450); RED BLOOD COUNT 2.91 M/uL (4.00-6.00); RED CELL DISTRIBUTION WIDTH 15.3 % (11.5-14.5)
[2024-09-09 19:49] LABS: HEMOGLOBIN 8.4 g/dL (12.0-15.00)
[2024-09-09] MEDS ORDERED: SUCRALFATE 1 G TABLET PO SCH (21:00)
[2024-09-10] VITALS: BP 136/71; O2SAT 98
[2024-09-10] MEDS ORDERED: MORPHINE SULFATE 4 MG/ML VIAL IV ONE (06:00)
[2024-09-10 07:48] LABS: ob POSITIVE (NEGATIVE)
[2024-09-10 08:48] VITALS: BP 147/82; O2SAT 98
[2024-09-10] MEDS ORDERED: RINGERS SOLUTION,LACTATED 1,000 ML IV SCH (10:15)
[2024-09-10] MEDS ORDERED: FENTANYL TD SCH (10:45)
[2024-09-10] MEDS ORDERED: MORPHINE SULFATE 2 MG/ML SYRINGE IV SCH (12:00)
[2024-09-10 18:21] VITALS: BP 110/75; O2SAT 97
[2024-09-10 20:48] LABS: HEMATOCRIT 33.3 % (36.0-45.00); HEMOGLOBIN 11.4 g/dL (12.0-15.00); MEAN CELL VOLUME 84.7 fL (80.00-100.00); MEAN CORPUSCULAR HGB CONC 34.3 g/dl (32.0-36.0); RED BLOOD COUNT 3.93 M/uL (4.00-6.00); RED CELL DISTRIBUTION WIDTH 14.8 % (11.5-14.5)
[2024-09-10 20:49] LABS: PLATELET COUNT 115 K/uL (150-450)
[2024-09-11 02:01] VITALS: BP 131/77; O2SAT 95
[2024-09-11 09:48] VITALS: BP 112/57; O2SAT 99
[2024-09-11 17:16] VITALS: BP 146/77; O2SAT 95
[2024-09-12 01:22] VITALS: BP 157/73; O2SAT 98
[2024-09-12 10:29] VITALS: BP 158/69; O2SAT 97
[2024-09-12 10:55] LABS: URINE APPEARANCE Clear; URINE BILIRRUBIN Negative (NEGATIVE); URINE BLOOD Moderate; URINE COLOR Yellow; URINE GLUCOSE Negative (NEGATIVE); URINE KETONE Negative (NEGATIVE); URINE LEUKOCYTE Large; URINE NITRATE Negative; URINE PROTEIN 30 (NEGATIVE); URINE UROBILINOGEN 0.2 E.U./dl
[2024-09-12 10:59] LABS: URINE BACTERIA 379.1 uL (0.0-1933); URINE EPITHELIAL CELLS 17.4 uL (0.0-38.8); URINE RBC 10.5 uL (0.0-20.8); URINE WBC 290.4 uL (0.0-23.2)
[2024-09-12 11:31] LABS: URINE CAST 0.45 uL (0.0-1.40)
[2024-09-12] MEDS ORDERED: ACETAMINOPHEN 500 MG GEL..CAP PO PRN (15:15)
[2024-09-12 17:45] VITALS: BP 160/83; O2SAT 97
[2024-09-13 09:04] VITALS: BP 125/73; O2SAT 96
[2024-09-13] MEDS ORDERED: INTEGRA PLUS C1 EACH PO (11:16)
[2024-09-13] MEDS ORDERED: PAIN RELIEVER500 M2 PO (11:16)
[2024-09-13] MEDS ORDERED: GABAPENTIN800 MG PO (11:19)
[2024-09-13] MEDS ORDERED: OXYCODONE HCL5 MG PO (11:20)
== END 2024-09-13 14:11 | disposition home or self-care (01) | DRG 758 ==
LOC: ER 17:52 → MEDJ 22:24 → SEC-K 22:24 → MEDJ 08-26 23:08 → SEC-K 08-27 01:24 → MEDJ 08-27 01:48
PROVIDERS: Anesthesiology Pain Medicine; General Practice; Specialist/Technologist, Other Nephrology; ADMIT Internal Medicine Hematology & Oncology; ATTEND Internal Medicine Hematology & Oncology
PROC: BW21ZZZ Computerized Tomography (CT Scan) of Abdomen and Pelvis (ICD-10-PCS; principal; 2024-08-25)
PROC: 3E0F7GC Introduction of Other Therapeutic Substance into Respiratory Tract, Via Natural or Artificial Opening (ICD-10-PCS; 2024-08-26)
PROC: BW4GZZZ Ultrasonography of Pelvic Region (ICD-10-PCS; 2024-09-01)
PROC: 3E0F7GC Introduction of Other Therapeutic Substance into Respiratory Tract, Via Natural or Artificial Opening (ICD-10-PCS; 2024-09-03)
PROC: 4A12X4Z Monitoring of Cardiac Electrical Activity, External Approach (ICD-10-PCS; 2024-09-04)
PROC: 30233N1 Transfusion of Nonautologous Red Blood Cells into Peripheral Vein, Percutaneous Approach (ICD-10-PCS; 2024-09-10)
DX: B37.49 Other urogenital candidiasis (principal); C78.6 Secondary malignant neoplasm of retroperitoneum and peritoneum; C79.89 Secondary malignant neoplasm of other specified sites; T83.84XA Pain due to genitourinary prosthetic devices, implants and grafts, initial encounter; N17.9 Acute kidney failure, unspecified; K92.2 Gastrointestinal hemorrhage, unspecified; C78.7 Secondary malignant neoplasm of liver and intrahepatic bile duct; C55 Malignant neoplasm of uterus, part unspecified; G89.3 Neoplasm related pain (acute) (chronic); M54.89 Other dorsalgia; R10.2 Pelvic and perineal pain; M79.651 Pain in right thigh; J20.9 Acute bronchitis, unspecified; K59.03 Drug induced constipation; D64.89 Other specified anemias; J45.998 Other asthma; Z92.21 Personal history of antineoplastic chemotherapy; Z90.710 Acquired absence of both cervix and uterus; Y73.1 Therapeutic (nonsurgical) and rehabilitative gastroenterology and urology devices associated with adverse incidents; Y83.8 Other surgical procedures as the cause of abnormal reaction of the patient, or of later complication, without mention of misadventure at the time of the procedure

== ENCOUNTER 2024-10-10 | Emergency (ER) | payer OTHER ==
[~2024-10-10] VITALS: Ht 160 cm; Wt 90.7 kg
[~2024-10-10] MED LIST changes: +OXYCODONE HCL5 MG PO; +PAIN RELIEVER500 M2 PO
[2024-10-10 00:11] VITALS: BP 150/70; O2SAT 100
[2024-10-10] MEDS ORDERED: LYRICA50 MG (00:12)
[2024-10-10] MEDS ORDERED: 0.9 % SODIUM CHLORIDE 1,000 ML IV STA (01:18)
[2024-10-10] MEDS ORDERED: LORazepam 1 MG TABLET PO STA (01:19)
[2024-10-10] MEDS ORDERED: KETOROLAC TROMETHAMINE 30 MG VIAL IV STA (01:19)
[2024-10-10] MEDS ORDERED: KETOROLAC TROMETHAMINE 60 MG VIAL IM ONE ×2 (01:22→06:03)
[2024-10-10 01:52] LABS: HEMATOCRIT 29.5 % (36.0-45.00); HEMOGLOBIN 9.7 g/dL (12.0-15.00); MEAN CELL VOLUME 87.6 fL (80.00-100.00); MEAN CORPUSCULAR HEMOGLOBIN 28.8 pg (27.00-32.0); MEAN CORPUSCULAR HGB CONC 32.9 g/dl (32.0-36.0); PLATELET COUNT 288 K/uL (150-450); RED BLOOD COUNT 3.37 M/uL (4.00-6.00); RED CELL DISTRIBUTION WIDTH 15.5 % (11.5-14.5)
[2024-10-10 02:14] LABS: ALBUMIN 2.7 gm/dL (3.4-5.0); BILIRUBIN TOTAL 0.24 mg/dL (0.3-1.2); CALCIUM 8.8 mg/dL (8.5-10.1); CREATININE SERUM 1.32 mg/dL (0.55-1.02); GFR 39.45; GLOBULINA 4.1 G/DL (2.4-3.5); POTASSIUM 4.79 mEq/L (3.5-5.1); TOTAL PROTEIN 6.8 gm/dL (6.4-8.2)
[2024-10-10 02:34] LABS: PH,URINE 6.5 (5.0-8.0); URINE APPEARANCE Clear; URINE BILIRRUBIN Negative (NEGATIVE); URINE BLOOD Large; URINE COLOR Yellow; URINE GLUCOSE Negative (NEGATIVE); URINE KETONE Negative (NEGATIVE); URINE LEUKOCYTE Moderate; URINE NITRATE Negative; URINE UROBILINOGEN 0.2 E.U./dl
[2024-10-10 02:38] LABS: URINE BACTERIA 237.4 uL (0.0-1933); URINE EPITHELIAL CELLS 23.9 uL (0.0-38.8); URINE RBC 265.7 uL (0.0-20.8); URINE WBC 387.4 uL (0.0-23.2)
[2024-10-10 02:46] LABS: URINE CAST 0.44 uL (0.0-1.40); URINE PROTEIN 100 (NEGATIVE)
[2024-10-10] MEDS ORDERED: MINERAL OIL 30 ML BLIST.PACK ONE ×2 (05:25→07:34)
[2024-10-10] MEDS ORDERED: HYOSCYAMINE SULFATE 0.125 MG TAB.SUBL SL STA (05:33)
[2024-10-10] MEDS ORDERED: HYDROGEN PEROXIDE 473 ML BOTTLE TOP ONE (06:02)
[2024-10-10] MEDS ORDERED: HYOSCYAMINE SULFATE 0.125 MG TAB.SUBL ONE (06:02)
[2024-10-10] MEDS ORDERED: LACTULOSE 20 G/30 ML BLIST.PACK PO ONE (06:45)
[2024-10-10] MEDS ORDERED: MAGNESIUM HYDROXIDE 400 MG/5 ML ML PO ONE (06:45)
[2024-10-10] MEDS ORDERED: MINERAL OIL 30 ML BLIST.PACK PO ONE (06:45)
[2024-10-10] MEDS ORDERED: MAGNESIUM HYDROXIDE 30 ML BLIST.PACK PO ONE (07:35)
[2024-10-10] MEDS ORDERED: LACTULOSE 20 G/30 ML BLIST.PACK ONE (07:35)
== END 2024-10-10 08:39 | disposition home or self-care (01) ==
LOC: ER
DX: K59.01 Slow transit constipation (principal); G89.3 Neoplasm related pain (acute) (chronic); Z91.013 Allergy to seafood
CPT/HCPCS: 36415; 51702; 74018; 96365; 96366; 99283; J1885; J7030

== ENCOUNTER 2024-11-05 07:37 | Outpatient (CLI) | payer OTHER ==
[~2024-11-05 07:37] MED LIST changes: +LYRICA50 MG
== END 2024-11-05 07:39 | disposition home or self-care (01) ==
LOC: NUCLEAR 07:37
PROVIDERS: ATTEND Internal Medicine Hematology & Oncology
DX: C55 Malignant neoplasm of uterus, part unspecified (principal); C77.2 Secondary and unspecified malignant neoplasm of intra-abdominal lymph nodes; C77.5 Secondary and unspecified malignant neoplasm of intrapelvic lymph nodes; C78.6 Secondary malignant neoplasm of retroperitoneum and peritoneum
CPT/HCPCS: 78815; A9552

== ENCOUNTER 2024-12-07 14:00 | Outpatient (CLI) | payer OTHER ==
[~2024-12-07 14:00] MED LIST changes: +Diflucan 200MG TABLE PO; +FENTANYL1 EAC7 TD; +LASIX40 MG PO; +LYRICA50 MG PO; +METOLAZONE5 MG PO; +PREGABALIN50 MG PO; +PROTEINEX-18 LI30 ML PO
== END 2024-12-07 14:11 | disposition home or self-care (01) ==
LOC: RAD 14:00
PROVIDERS: ATTEND Internal Medicine Hematology & Oncology
DX: J90 Pleural effusion, not elsewhere classified (principal)

== ENCOUNTER 2024-12-07 14:12 | Outpatient (CLI) | payer OTHER ==
[2024-12-07 14:54] LABS: ABG PH 7.444 (7.35-7.45); ABG PO2 86.2 mmHg (80-100); BASE EXCESS 2.5 mmol/l; BICARBONATE 26.8 mmol/l (23-25); allen test SATISFACTORY; o2 21 %; puncture site RADIAL LEFT
== END 2024-12-07 14:17 | disposition home or self-care (01) ==
LOC: LAB 14:12
PROVIDERS: ATTEND Internal Medicine Hematology & Oncology
DX: R09.02 Hypoxemia (principal)

== ENCOUNTER 2024-12-18 20:18 | Inpatient (IN) | payer OTHER ==
[~2024-12-18] VITALS: Ht 162.6 cm; Wt 90.7 kg
[2024-12-18] MEDS ORDERED: ONDANSETRON HCL 2 MG/ML VIAL IV ONE (20:30)
[2024-12-18] MEDS ORDERED: PANTOPRAZOLE SODIUM 40 MG/VIAL VIAL IV ONE (20:30)
[2024-12-18 21:17] LABS: HEMATOCRIT 45.6 % (36.0-45.00); HEMOGLOBIN 15.6 g/dL (12.0-15.00); MEAN CELL VOLUME 90.5 fL (80.00-100.00); MEAN CORPUSCULAR HEMOGLOBIN 30.9 pg (27.00-32.0); MEAN CORPUSCULAR HGB CONC 34.2 g/dl (32.0-36.0); PLATELET COUNT 215 K/uL (150-450); RED BLOOD COUNT 5.04 M/uL (4.00-6.00); RED CELL DISTRIBUTION WIDTH 19.3 % (11.5-14.5)
[2024-12-18 21:20] LABS: INR 1.05; PARTIAL THROMBOPLASTIN TIME 23.8 SECONDS (22.0-34.0); PROTHROMBIN TIME 11.4 SECONDS (9.0-11.5)
[2024-12-18 21:26] LABS: ALBUMIN 3.1 gm/dL (3.4-5.0); BILIRUBIN TOTAL 0.83 mg/dL (0.3-1.2); CALCIUM 9.4 mg/dL (8.5-10.1); CREATININE SERUM 1.51 mg/dL (0.55-1.02); GFR 33.78; GLOBULINA 5.2 G/DL (2.4-3.5); POTASSIUM 3.25 mEq/L (3.5-5.1); TOTAL PROTEIN 8.3 gm/dL (6.4-8.2)
[2024-12-18] MEDS ORDERED: BUTALB/ACETAMINOPHEN/CAFFEINE 1 TAB TABLET PO PRN (23:00)
[2024-12-18] MEDS ORDERED: ONDANSETRON HCL 2 MG/ML VIAL IV PRN (23:00)
[2024-12-18] MEDS ORDERED: 0.9 % SODIUM CHLORIDE 1,000 ML IV SCH (23:00)
[2024-12-18] MEDS ORDERED: ACETAMINOPHEN 325 MG TABLET PO PRN (23:00)
[2024-12-19] VITALS: BP 109/71; O2SAT 95
[2024-12-19 02:29] VITALS: BP 112/70; O2SAT 98
[2024-12-19] MEDS ORDERED: MORPHINE SULFATE 4 MG/ML CARTRIDGE IV PRN (04:15)
[2024-12-19 07:57] LABS: CHOL HDL RATIO 3.9 (0-5.0)
[2024-12-19] MEDS ORDERED: OxyCODONE HCL ER 10MG TAB (OxyCONTIN) PO SCH ×2 (09:00→21:00)
[2024-12-19] MEDS ORDERED: FAMOTIDINE/PF 20 MG/2 ML VIAL IV SCH (09:00)
[2024-12-19 09:13] VITALS: BP 136/86
[2024-12-19] MEDS ORDERED: AA 4.25%/CAL/LYTES/DEXT 5% 1,000 ML PERIFERAL SCH (17:00)
[2024-12-19] MEDS ORDERED: AMINO ACIDS 4.25 %/DEXTROSE 5% 1,000 ML PERIFERAL SCH (17:00)
[2024-12-19 17:26] VITALS: BP 112/72; O2SAT 96
[2024-12-19] MEDS ORDERED: METOCLOPRAMIDE HCL 10 MG in DEXTROSE 5 % IN WATER 50 ML IV SCH (18:10)
[2024-12-19] MEDS ORDERED: PANTOPRAZOLE SODIUM 40 MG/VIAL VIAL IV SCH (21:00)
[2024-12-19 21:53] LABS: CALCIUM 8.3 mg/dL (8.5-10.1); CHOL HDL RATIO 4.2 (0-5.0); CREATININE SERUM 1.11 mg/dL (0.55-1.02); GFR 48.18
[2024-12-19 22:02] LABS: POTASSIUM 2.74 mEq/L (3.5-5.1)
[2024-12-19] MEDS ORDERED: KETOROLAC TROMETHAMINE 30 MG VIAL IV PRN (23:00)
[2024-12-20 00:36] VITALS: BP 111/74; O2SAT 96
[2024-12-20] MEDS ORDERED: POTASSIUM CHLORIDE IN WATER 40 MEQ/100 ML PIGGYBAG IV SCH (01:00)
[2024-12-20 07:04] LABS: URINE APPEARANCE Cloudy; URINE BACTERIA 1107.6 uL (0.0-1933); URINE BILIRRUBIN Negative (NEGATIVE); URINE BLOOD Moderate; URINE CAST 0.29 uL (0.0-1.40); URINE COLOR Yellow; URINE EPITHELIAL CELLS 3.3 uL (0.0-38.8); URINE GLUCOSE 100 MG/DL (NEGATIVE); URINE KETONE Negative (NEGATIVE); URINE LEUKOCYTE Large; URINE NITRATE Positive; URINE PROTEIN 30 (NEGATIVE); URINE RBC 100.7 uL (0.0-20.8); URINE UROBILINOGEN 0.2 E.U./dl; URINE WBC 1884.5 uL (0.0-23.2)
[2024-12-20 07:07] LABS: HEMATOCRIT 35.5 % (36.0-45.00); HEMOGLOBIN 11.8 g/dL (12.0-15.00); MEAN CELL VOLUME 92.2 fL (80.00-100.00); MEAN CORPUSCULAR HEMOGLOBIN 30.8 pg (27.00-32.0); MEAN CORPUSCULAR HGB CONC 33.4 g/dl (32.0-36.0); PLATELET COUNT 171 K/uL (150-450); RED BLOOD COUNT 3.85 M/uL (4.00-6.00); RED CELL DISTRIBUTION WIDTH 19.1 % (11.5-14.5)
[2024-12-20 07:18] LABS: INR 1.02; PARTIAL THROMBOPLASTIN TIME 24.5 SECONDS (22.0-34.0); PROTHROMBIN TIME 11.1 SECONDS (9.0-11.5)
[2024-12-20 07:19] LABS: URINE YEAST FEW /hpf
[2024-12-20 07:58] LABS: CALCIUM 8.3 mg/dL (8.5-10.1); CREATININE SERUM 0.87 mg/dL (0.55-1.02); GFR 63.82; POTASSIUM 3.68 mEq/L (3.5-5.1)
[2024-12-20 07:59] LABS: ALBUMIN 2.3 gm/dL (3.4-5.0); BILIRUBIN TOTAL 0.6 mg/dL (0.3-1.2); GLOBULINA 3.4 G/DL (2.4-3.5); TOTAL PROTEIN 5.7 gm/dL (6.4-8.2)
[2024-12-20 08:13] LABS: BILIRUBIN,CONJUGATED 0.23 mg/dL (0.0-0.2); BILIRUBIN,UNCONJUGATED 0.37 mg/dL (0.0-0.6); CHOL HDL RATIO 3.9 (0-5.0); MAGNESIUM 1.5 mg/dL (1.8-2.4)
[2024-12-20 08:19] VITALS: BP 97/64
[2024-12-20] MEDS ORDERED: VITAMIN B COMPLEX/LYSINE 15 ML BLIST.PACK PO SCH (09:00)
[2024-12-20] MEDS ORDERED: MAGNESIUM SULFATE/D5W 100 ML IV NR (14:00)
[2024-12-20 16:17] VITALS: BP 109/66
[2024-12-20] MEDS ORDERED: FAT EMULSIONS 250 ML IV SCH (21:00)
[2024-12-20] MEDS ORDERED: DIPHENHYDRAMINE HCL 50 MG/ML VIAL 1ML IV SCH (21:00)
[2024-12-20] MEDS ORDERED: TEMAZEPAM 15 MG CAPSULE PO SCH (21:00)
[2024-12-21 01:22] VITALS: BP 157/84; O2SAT 98
[2024-12-21 08:22] VITALS: BP 120/76; O2SAT 95
[2024-12-21] MEDS ORDERED: fentaNYL 50 MCG PATCH.TD72 TD SCH (09:00)
[2024-12-21 11:42] LABS: UREA CLEARANCE 11.2 ML/MIN
[2024-12-21] MEDS ORDERED: AA 5 % NO.6/DEXTROSE 15 % 2,000 ML IV SCH (17:00)
[2024-12-21] MEDS ORDERED: AA 5 % NO.6/DEXTROSE 15 % 1,000 ML IV SCH (17:00)
[2024-12-21 17:36] VITALS: BP 114/77; O2SAT 98
[2024-12-22 02:24] VITALS: BP 131/74; O2SAT 98
[2024-12-22 09:49] VITALS: BP 142/78; O2SAT 95
[2024-12-22 13:20] VITALS: BP 111/65
[2024-12-22 18:25] VITALS: BP 138/84
[2024-12-23 01:40] VITALS: BP 80/52; O2SAT 96
[2024-12-23 08:07] VITALS: BP 144/75
[2024-12-23 17:13] VITALS: BP 114/78
[2024-12-24] MEDS ORDERED: KETOROLAC TROMETHAMINE 30 MG VIAL IV ONE (01:30)
[2024-12-24 01:53] VITALS: BP 125/86; O2SAT 97
[2024-12-24 07:56] VITALS: BP 90/60
[2024-12-24] MEDS ORDERED: HALOPERIDOL 1 MG TABLET PO SCH (09:00)
[2024-12-24] MEDS ORDERED: AA 5 % NO.6/DEXTROSE 15 % 1,000 ML CENTRAL SCH (17:00)
[2024-12-24 17:23] VITALS: BP 104/68; O2SAT 98
[2024-12-25 02:15] VITALS: BP 136/80; O2SAT 99
[2024-12-25 09:51] VITALS: BP 127/80; O2SAT 98
[2024-12-25 10:39] LABS: HEMATOCRIT 32.3 % (36.0-45.00); HEMOGLOBIN 10.7 g/dL (12.0-15.00); MEAN CELL VOLUME 92.5 fL (80.00-100.00); MEAN CORPUSCULAR HEMOGLOBIN 30.7 pg (27.00-32.0); MEAN CORPUSCULAR HGB CONC 33.2 g/dl (32.0-36.0); PLATELET COUNT 163 K/uL (150-450); RED BLOOD COUNT 3.49 M/uL (4.00-6.00); RED CELL DISTRIBUTION WIDTH 18.7 % (11.5-14.5)
[2024-12-25 11:16] LABS: CALCIUM 7.7 mg/dL (8.5-10.1); CREATININE SERUM 0.98 mg/dL (0.55-1.02); GFR 55.63; POTASSIUM 3.56 mEq/L (3.5-5.1)
[2024-12-25 18:11] VITALS: BP 115/80
[2024-12-25] MEDS ORDERED: fentaNYL 50 MCG PATCH.TD72 TD ONE (19:45)
[2024-12-25] MEDS ORDERED: PANTOPRAZOLE SODIUM 40 MG TABLET.DR PO SCH (21:00)
[2024-12-26 09:52] VITALS: BP 98/63; O2SAT 97
[2024-12-26] MEDS ORDERED: BUTALB-ACETAMI1 EAC2 PO (16:51)
[2024-12-26] MEDS ORDERED: ACETAMINOPHEN325 M1 PO (16:51)
[2024-12-26] MEDS ORDERED: RESTORIL15 MG PO (16:52)
[2024-12-26] MEDS ORDERED: HALOPERIDOL1 MG PO (16:52)
[2024-12-26] MEDS ORDERED: PANTOPRAZOLE SO40 MG PO (16:53)
[2024-12-26] MEDS ORDERED: APETIGEN P12.5 MG/15 PO (16:53)
[2024-12-26] MEDS ORDERED: OXYCODONE HCL E10 MG PO (16:55)
[2024-12-26] MEDS ORDERED: FENTANYL1 EAC6 TD (16:58)
[2024-12-26] MEDS ORDERED: FENTANYL1 EAC4 TD (16:59)
== END 2024-12-26 21:42 | disposition home or self-care (01) | DRG 641 ==
LOC: ER 20:18 → MEDJ 23:29
PROVIDERS: General Practice; ADMIT Internal Medicine Hematology & Oncology; ATTEND Internal Medicine Hematology & Oncology
PROC: BW21ZZZ Computerized Tomography (CT Scan) of Abdomen and Pelvis (ICD-10-PCS; principal; 2024-12-18)
PROC: 8E0ZXY6 Isolation (ICD-10-PCS; 2024-12-18)
PROC: 3E0336Z Introduction of Nutritional Substance into Peripheral Vein, Percutaneous Approach (ICD-10-PCS; 2024-12-19)
DX: E46 Unspecified protein-calorie malnutrition (principal); C78.6 Secondary malignant neoplasm of retroperitoneum and peritoneum; C79.82 Secondary malignant neoplasm of genital organs; C78.7 Secondary malignant neoplasm of liver and intrahepatic bile duct; N17.9 Acute kidney failure, unspecified; K29.00 Acute gastritis without bleeding; E86.0 Dehydration; E87.6 Hypokalemia; D63.0 Anemia in neoplastic disease; Z92.21 Personal history of antineoplastic chemotherapy; Z92.3 Personal history of irradiation